=== PATIENT | female | born 1940 | race African-American/Black ===

== ENCOUNTER 2016-08-15 14:05 | Inpatient (IN) | payer MEDICARE, MEDICAID ==
[~2016-08-15] VITALS: Ht 162.6 cm; Wt 98.0 kg
[~2016-08-15 14:05] MED LIST: ALBU18HF2 INH; METF500T3 PO
[2016-08-15 15:29] LABS: BASOPHILS % 0.5 % (0.0-2.0); DIFFERENTIAL COMMENT 0; EOSINOPHILS % 2.5 % (0.0-5.0); HEMATOCRIT. 42.2 % (36.0-48.0); HEMOGLOBIN. 14.3 g/dL (12.0-16.0); LYMPHOCYTES % 17.4 % (20.0-50.0); MEAN CORPUSCULAR HEMOGLOBIN 36.5 pg (28.0-32.0); MEAN CORPUSCULAR HGB CONC 33.8 g/dL (31.0-37.0); MEAN CORPUSCULAR VOLUME 107.9 fL (81.0-99.0); MONOCYTES % 10.3 % (2.0-8.0); NEUTROPHILS % 69.3 % (40.0-76.0); PLATELET 144 x1000/uL (130-400); RED BLOOD CELL COUNT 3.91 mill/uL (4.2-5.4); RED CELL DISTRIBUTION WIDTH 16.7 % (11.6-14.6); WHITE BLOOD COUNT 12.6 x1000/uL (4.5-11.0)
[2016-08-15 15:32] LABS: INR 1.3; PROTHROMBIN TIME 13.9 sec
[2016-08-15 15:40] LABS: ANION GAP 12; CALCIUM 9.6 mg/dL (8.5-10.1); CARBON DIOXIDE 24 mEq/L (21-32); CHLORIDE 101 mEq/L (98-107); INDEX HEMOLYSI 1 (1-3); INDEX ICTERIC 1 (1-4); INDEX LIPEMIC 1 (1-3); NT PRO B-TYPE NATRIURETIC PEP 581 pg/mL (5-125); TROPONIN I < 0.02 ng/mL (0.00-0.04); UREA NITROGEN BLOOD 27 mg/dL (7-21); eGFR > 60 mL/min (>60)
[2016-08-15] MEDS ORDERED: SODIUM CHLORIDE 0.9% 1,000 ML IV ONE (15:55)
[2016-08-15 16:47] LABS: ALBUMIN 1.5 g/dL (3.4-5.0); BILIRUBIN DIRECT 0.4 mg/dL (0.0-0.2)
[2016-08-15] MEDS ORDERED: IPRATROPIUM/ALBUTEROL 0.5-3(2.5)MG/3ML NEB INH PRN (18:00)
[2016-08-15] MEDS ORDERED: ONDANSETRON HCL 4MG/2ML VIAL IV PRN (18:00)
[2016-08-15] MEDS ORDERED: ACETAMINOPHEN 325MG TABLET PO PRN (18:00)
[2016-08-15] MEDS ORDERED: FAMO40TA7 PO (23:52)
[2016-08-15] MEDS ORDERED: HYDR-3933 PO (23:52)
[2016-08-16] VITALS: BP 112/67
[2016-08-16] MEDS ORDERED: DEXTROSE 50% WATER 50ML SYRINGE IV PRN
[2016-08-16 00:17] LABS: AMMONIA 38 uMol/L (<32)
[2016-08-16] MEDS: FUROSEMIDE 40MG/4ML VIAL IV SCH ×2 (00:19→09:02)
[2016-08-16] MEDS: ENOXAPARIN 100MG/ML SYR SUBCUT SCH ×3 (00:23→21:28)
[2016-08-16 04:00] VITALS: BP 98/65
[2016-08-16 06:52] LABS: CHLORIDE 100 mEq/L (98-107); INDEX HEMOLYSI 2 (1-3); INDEX ICTERIC 2 (1-4); INDEX LIPEMIC 1 (1-3)
[2016-08-16 06:55] LABS: HEPATITIS B SURFACE ANTIGEN NEGATIVE
[2016-08-16] MEDS: BLOOD SUGAR DIAGNOSTIC STRIP TEST SCH ×4 (07:04→20:49)
[2016-08-16] MEDS: OMEPRAZOLE 20MG CAPSULE EXTENDED RELEASE PO SCH (07:04)
[2016-08-16 07:12] LABS: ALANINE AMINOTRANSFERASE 41 IU/L (13-61); ALBUMIN 1.6 g/dL (3.4-5.0); ANION GAP 15; BILIRUBIN DIRECT 0.9 mg/dL (0.0-0.2); CALCIUM 9.2 mg/dL (8.5-10.1); CARBON DIOXIDE 23 mEq/L (21-32); MAGNESIUM 1.9 mg/dL (1.8-2.4); PHOSPHORUS 3.2 mg/dL (2.5-4.9); UREA NITROGEN BLOOD 29 mg/dL (7-21); eGFR > 60 mL/min (>60)
[2016-08-16 07:21] LABS: BASOPHILS % 0.5 % (0.0-2.0); DIFFERENTIAL COMMENT 0; EOSINOPHILS % 0.5 % (0.0-5.0); HEMATOCRIT. 41.6 % (36.0-48.0); HEMOGLOBIN. 13.8 g/dL (12.0-16.0); LYMPHOCYTES % 13.6 % (20.0-50.0); MEAN CORPUSCULAR HEMOGLOBIN 36.2 pg (28.0-32.0); MEAN CORPUSCULAR HGB CONC 33.2 g/dL (31.0-37.0); MEAN CORPUSCULAR VOLUME 108.9 fL (81.0-99.0); MEAN PLATELET VOLUME 7.5 fl (7.4-10.4); MONOCYTES % 9.6 % (2.0-8.0); NEUTROPHILS % 75.8 % (40.0-76.0); PLATELET 155 x1000/uL (130-400); RED BLOOD CELL COUNT 3.82 mill/uL (4.2-5.4); RED CELL DISTRIBUTION WIDTH 17.1 % (11.6-14.6); WHITE BLOOD COUNT 13.4 x1000/uL (4.5-11.0)
[2016-08-16 07:22] LABS: HEPATITIS C VIR.AB 0.23 INDEXVAL (0.00-0.80)
[2016-08-16 07:23] LABS: HEPATITIS B CORE AB IGM NEGATIVE
[2016-08-16 07:24] LABS: HEPATITIS A AB IGM NEGATIVE (NEGATIVE)
[2016-08-16] MEDS: INSULIN LISPRO 100 UNITS/ML SUBCUT SCH ×4 (07:50→20:49)
[2016-08-16 07:54] VITALS: BP 103/71
[2016-08-16 09:04] LABS: T3 FREE 0.57 pg/ml (2.18-3.98); T4 FREE 1.08 ng/dL (0.76-1.46)
[2016-08-16 09:30] LABS: FOLIC ACID (FOLATE) SERUM 8.9 ng/mL (>5.38)
[2016-08-16] MEDS ORDERED: LACTULOSE 20G/30ML UDC PO NR (11:45)
[2016-08-16 12:19] VITALS: BP 93/57
[2016-08-16] MEDS: TRAMADOL 50MG TABLET PO PRN ×2 (12:56→21:28)
[2016-08-16] MEDS: HYDROCODONE/ACETAMINOPHEN 5/325MG TABLET PO PRN (14:35)
[2016-08-16 16:00] VITALS: BP 100/68
[2016-08-16 16:44] LABS: CLARITY URINE TURBID (CLEAR); COLOR URINE DARK YELLOW (YELLOW); GLUCOSE URINE NEGATIVE (NEGATIVE); KETONES URINE NEGATIVE (NEGATIVE); LEUKOCYTE ESTERASE URINE 3+ (NEGATIVE); NITRITE URINE POSITIVE (NEGATIVE); OCCULT BLOOD URINE 1+ (NEGATIVE); PROTEIN URINE NEGATIVE (NEGATIVE); SPECIFIC GRAVITY URINE 1.012 (1.005-1.030)
[2016-08-16 17:16] LABS: *AMPHETAMINES SCREEN URINE NEGATIVE (NEGATIVE); *BARBITURATES SCREEN URINE NEGATIVE (NEGATIVE); *BENZODIAZEPINES SCREEN URINE NEGATIVE (NEGATIVE); *COCAINE SCREEN URINE NEGATIVE (NEGATIVE); CANNABINOID URINE SCREEN NEGATIVE (NEGATIVE); ECSTASY MDMA SCREEN URINE NEGATIVE (NEGATIVE); METHADONE URINE SCREEN NEGATIVE (NEGATIVE); OPIATES URINE SCREEN PRESUMTIVE POSITIVE (NEGATIVE); PHENCYCLIDINE URINE SCREEN NEGATIVE (NEGATIVE)
[2016-08-16 17:43] LABS: AMORPHOUS SEDIMENT URINE 1+ /lpf; MUCUS URINE 3+ /lpf (< = 2+); WBC URINE 50-100 /hpf (0-2)
[2016-08-16 17:45] LABS: SQUAMOUS EPITHELIAL CELL URINE FEW /lpf (RARE/1+)
[2016-08-16 17:46] LABS: BACTERIA URINE 3+
[2016-08-16 20:00] VITALS: BP 104/71
[2016-08-16 20:38] LABS: INDEX HEMOLYSI 4 (1-3)
[2016-08-16 20:40] LABS: AMMONIA 58 uMol/L (<32)
[2016-08-16] MEDS: LACTULOSE 20G/30ML UDC PO SCH (21:27)
[2016-08-17] VITALS: BP 104/72
[2016-08-17 04:00] VITALS: BP 106/71
[2016-08-17 05:02] LABS: ANION GAP 12; CARBON DIOXIDE 26 mEq/L (21-32); CHLORIDE 101 mEq/L (98-107); INDEX HEMOLYSI 1 (1-3); INDEX ICTERIC 1 (1-4); INDEX LIPEMIC 1 (1-3); UREA NITROGEN BLOOD 33 mg/dL (7-21); eGFR > 60 mL/min (>60)
[2016-08-17 05:32] LABS: CALCIUM 9.1 mg/dL (8.5-10.1); MAGNESIUM 1.8 mg/dL (1.8-2.4)
[2016-08-17 06:35] LABS: BASOPHILS % 0.2 % (0.0-2.0); DIFFERENTIAL COMMENT 0; EOSINOPHILS % 1.9 % (0.0-5.0); HEMATOCRIT. 37.4 % (36.0-48.0); HEMOGLOBIN. 12.6 g/dL (12.0-16.0); LYMPHOCYTES % 15.1 % (20.0-50.0); MEAN CORPUSCULAR HEMOGLOBIN 36.5 pg (28.0-32.0); MEAN CORPUSCULAR HGB CONC 33.8 g/dL (31.0-37.0); MEAN PLATELET VOLUME 7.5 fl (7.4-10.4); MONOCYTES % 9.7 % (2.0-8.0); NEUTROPHILS % 73.1 % (40.0-76.0); PLATELET 158 x1000/uL (130-400); RED BLOOD CELL COUNT 3.46 mill/uL (4.2-5.4); RED CELL DISTRIBUTION WIDTH 16.4 % (11.6-14.6); WHITE BLOOD COUNT 15.2 x1000/uL (4.5-11.0)
[2016-08-17] MEDS: LACTULOSE 20G/30ML UDC PO SCH ×3 (06:42→21:22)
[2016-08-17] MEDS: OMEPRAZOLE 20MG CAPSULE EXTENDED RELEASE PO SCH (06:50)
[2016-08-17] MEDS: BLOOD SUGAR DIAGNOSTIC STRIP TEST SCH ×4 (06:53→21:22)
[2016-08-17] MEDS: INSULIN LISPRO 100 UNITS/ML SUBCUT SCH ×4 (07:50→21:21)
[2016-08-17 08:00] VITALS: BP 112/75
[2016-08-17] MEDS: HYDROCODONE/ACETAMINOPHEN 5/325MG TABLET PO PRN (08:37)
[2016-08-17] MEDS: ENOXAPARIN 100MG/ML SYR SUBCUT SCH ×2 (09:16→21:23)
[2016-08-17] MEDS: FUROSEMIDE 40MG/4ML VIAL IV SCH ×2 (09:16→17:38)
[2016-08-17] MEDS ORDERED: SPIRONOLACTONE 100MG TABLET PO SCH (10:30)
[2016-08-17 12:00] VITALS: BP 120/86
[2016-08-17] MEDS ORDERED: LEVOFLOXACIN 500MG PREMIX 100 ML IV NR (12:00)
[2016-08-17] MEDS: PROPRANOLOL HCL 10MG TABLET PO SCH ×2 (15:54→21:00)
[2016-08-17 16:00] VITALS: BP 116/84
[2016-08-17] MEDS: TRAMADOL 50MG TABLET PO PRN (17:52)
[2016-08-17 20:00] VITALS: BP 106/79
[2016-08-18 00:36] VITALS: BP 100/78
[2016-08-18] MEDS: HYDROCODONE/ACETAMINOPHEN 5/325MG TABLET PO PRN ×2 (02:55→15:56)
[2016-08-18 04:00] VITALS: BP 87/47
[2016-08-18] MEDS: FUROSEMIDE 40MG/4ML VIAL IV SCH ×2 (06:15→18:43)
[2016-08-18] MEDS: LACTULOSE 20G/30ML UDC PO SCH ×2 (06:15→18:43)
[2016-08-18] MEDS: SPIRONOLACTONE 50MG TABLET PO SCH ×2 (06:16→18:42)
[2016-08-18] MEDS: BLOOD SUGAR DIAGNOSTIC STRIP TEST SCH ×4 (06:32→21:00)
[2016-08-18 06:38] LABS: AMMONIA 76 uMol/L (<32); INDEX HEMOLYSI 1 (1-3)
[2016-08-18 07:33] LABS: BASOPHILS % 0.4 % (0.0-2.0); DIFFERENTIAL COMMENT 0; EOSINOPHILS % 1.7 % (0.0-5.0); HEMATOCRIT. 35.4 % (36.0-48.0); HEMOGLOBIN. 11.9 g/dL (12.0-16.0); LYMPHOCYTES % 14.1 % (20.0-50.0); MEAN CORPUSCULAR HEMOGLOBIN 35.7 pg (28.0-32.0); MEAN CORPUSCULAR HGB CONC 33.5 g/dL (31.0-37.0); MEAN CORPUSCULAR VOLUME 106.6 fL (81.0-99.0); MEAN PLATELET VOLUME 7.3 fl (7.4-10.4); MONOCYTES % 8.8 % (2.0-8.0); PLATELET 145 x1000/uL (130-400); RED BLOOD CELL COUNT 3.32 mill/uL (4.2-5.4); RED CELL DISTRIBUTION WIDTH 16.6 % (11.6-14.6); WHITE BLOOD COUNT 14.9 x1000/uL (4.5-11.0)
[2016-08-18] MEDS: INSULIN LISPRO 100 UNITS/ML SUBCUT SCH ×4 (07:50→21:00)
[2016-08-18 08:00] VITALS: BP 92/61
[2016-08-18 08:12] LABS: ALANINE AMINOTRANSFERASE 34 IU/L (13-61); ALBUMIN 1.3 g/dL (3.4-5.0); ANION GAP 10; BILIRUBIN DIRECT 0.6 mg/dL (0.0-0.2); CALCIUM 8.8 mg/dL (8.5-10.1); CARBON DIOXIDE 27 mEq/L (21-32); CHLORIDE 100 mEq/L (98-107); INDEX HEMOLYSI 1 (1-3); INDEX ICTERIC 1 (1-4); INDEX LIPEMIC 1 (1-3); UREA NITROGEN BLOOD 30 mg/dL (7-21); eGFR > 60 mL/min (>60)
[2016-08-18] MEDS: PROPRANOLOL HCL 10MG TABLET PO SCH ×2 (09:00→21:00)
[2016-08-18] MEDS: TRAMADOL 50MG TABLET PO PRN (09:44)
[2016-08-18] MEDS: FAMOTIDINE 20MG TABLET PO SCH (09:45)
[2016-08-18] MEDS: ENOXAPARIN 100MG/ML SYR SUBCUT SCH ×2 (09:46→22:09)
[2016-08-18 12:00] VITALS: BP 101/65
[2016-08-18] MEDS: LEVOFLOXACIN 250MG PREMIX 50 ML IV SCH (12:01)
[2016-08-18 13:52] LABS: BG BASE EXCESS -2.1 mmol/L (-2.0-2.0); BG CARBOXYHEMOGLOBIN 0.4 % (0.5-1.5); BG DEOXYHEMOGLOBIN 3.4 % (0.0-5.0); BG FRACTION INSPIRED OXYGEN 28; BG HCO3 ACT 22.6 mmol/L (22.0-26.0); BG METHEMOGLOBIN 0.2 % (0.0-1.5); BG OXYGEN SATURATION 96.6 % (92.0-98.5); BG PCO2 38.7 mmHg (35.0-45.0); BG PH 7.384 (7.350-7.450); BG PO2 88.6 mmHg (75.0-100.0); BG SAMPLE SITE RIGHT BRACHIAL; BG TOTAL HEMOGLOBIN 13.4 g/dL (12.0-18.0); BG VENT MODE NASAL CANNULA
[2016-08-18] MEDS: IPRATROPIUM/ALBUTEROL 0.5-3(2.5)MG/3ML NEB HHN PRN ×2 (15:34→21:33)
[2016-08-18] MEDS: BUDESONIDE 0.5MG/2ML NEB HHN SCH ×2 (15:35→21:33)
[2016-08-18 16:00] VITALS: BP 100/60
[2016-08-18 16:47] LABS: HEMATOCRIT 39.3 % (36.0-48.0); HEMOGLOBIN 13.1 g/dL (12.0-16.0)
[2016-08-18 20:56] VITALS: BP 108/68
[2016-08-19 00:17] VITALS: BP 110/67
[2016-08-19 04:00] VITALS: BP 98/68
[2016-08-19] MEDS: FUROSEMIDE 40MG/4ML VIAL IV SCH ×2 (06:17→18:44)
[2016-08-19] MEDS: SPIRONOLACTONE 50MG TABLET PO SCH ×2 (06:17→18:43)
[2016-08-19 06:45] LABS: CHLORIDE 100 mEq/L (98-107); INDEX HEMOLYSI 1 (1-3); INDEX ICTERIC 1 (1-4); INDEX LIPEMIC 1 (1-3)
[2016-08-19 06:55] LABS: AMMONIA 82 uMol/L (<32)
[2016-08-19 06:56] LABS: ALANINE AMINOTRANSFERASE 37 IU/L (13-61); ANION GAP 16; BILIRUBIN DIRECT 0.6 mg/dL (0.0-0.2); CALCIUM 7.7 mg/dL (8.5-10.1); CARBON DIOXIDE 21 mEq/L (21-32); MAGNESIUM 1.4 mg/dL (1.8-2.4); UREA NITROGEN BLOOD 23 mg/dL (7-21); eGFR > 60 mL/min (>60)
[2016-08-19 07:20] LABS: ALBUMIN 0.7 g/dL (3.4-5.0)
[2016-08-19] MEDS: BLOOD SUGAR DIAGNOSTIC STRIP TEST SCH ×4 (07:20→21:31)
[2016-08-19] MEDS: INSULIN LISPRO 100 UNITS/ML SUBCUT SCH ×4 (07:50→21:27)
[2016-08-19 08:00] VITALS: BP 104/75
[2016-08-19] MEDS: BUDESONIDE 0.5MG/2ML NEB HHN SCH ×2 (08:13→20:24)
[2016-08-19] MEDS: IPRATROPIUM/ALBUTEROL 0.5-3(2.5)MG/3ML NEB HHN PRN (08:13)
[2016-08-19 08:43] LABS: BASOPHILS % 0.7 % (0.0-2.0); DIFFERENTIAL COMMENT 0; EOSINOPHILS % 1.8 % (0.0-5.0); HEMOGLOBIN. 13.6 g/dL (12.0-16.0); LYMPHOCYTES % 14.9 % (20.0-50.0); MEAN CORPUSCULAR HGB CONC 33.1 g/dL (31.0-37.0); MEAN CORPUSCULAR VOLUME 108.6 fL (81.0-99.0); MEAN PLATELET VOLUME 8.1 fl (7.4-10.4); MONOCYTES % 9.7 % (2.0-8.0); NEUTROPHILS % 72.9 % (40.0-76.0); PLATELET 123 x1000/uL (130-400); RED BLOOD CELL COUNT 3.77 mill/uL (4.2-5.4); WHITE BLOOD COUNT 13.5 x1000/uL (4.5-11.0)
[2016-08-19] MEDS ORDERED: POTASSIUM-SODIUM PHOSPHATE POWDER PACKET PO NR (08:45)
[2016-08-19] MEDS: PROPRANOLOL HCL 10MG TABLET PO SCH ×2 (09:00→21:31)
[2016-08-19] MEDS: LACTULOSE 20G/30ML UDC PO SCH ×2 (09:48→18:43)
[2016-08-19] MEDS: FAMOTIDINE 20MG TABLET PO SCH (09:49)
[2016-08-19] MEDS: ENOXAPARIN 100MG/ML SYR SUBCUT SCH ×2 (09:50→21:32)
[2016-08-19] MEDS ORDERED: MAGNESIUM 2 G PREMIX 50 ML IV NR (10:00)
[2016-08-19] MEDS ORDERED: LACTULOSE 20G/30ML UDC PO SCH (12:00)
[2016-08-19 12:11] VITALS: BP 91/48
[2016-08-19] MEDS: LEVOFLOXACIN 250MG PREMIX 50 ML IV SCH (13:39)
[2016-08-19 15:48] VITALS: BP 107/70
[2016-08-19 20:00] VITALS: BP 116/70
[2016-08-19] MEDS: TRAMADOL 50MG TABLET PO PRN (21:54)
[2016-08-20] VITALS: BP 122/66
[2016-08-20 04:00] VITALS: BP 120/60
[2016-08-20 06:47] LABS: BASOPHILS % 0.7 % (0.0-2.0); DIFFERENTIAL COMMENT 0; EOSINOPHILS % 1.4 % (0.0-5.0); HEMATOCRIT. 38.5 % (36.0-48.0); MEAN CORPUSCULAR HEMOGLOBIN 35.7 pg (28.0-32.0); MEAN CORPUSCULAR HGB CONC 33.7 g/dL (31.0-37.0); MEAN CORPUSCULAR VOLUME 106.1 fL (81.0-99.0); MEAN PLATELET VOLUME 7.7 fl (7.4-10.4); NEUTROPHILS % 75.9 % (40.0-76.0); PLATELET 135 x1000/uL (130-400); RED BLOOD CELL COUNT 3.63 mill/uL (4.2-5.4); RED CELL DISTRIBUTION WIDTH 16.5 % (11.6-14.6); WHITE BLOOD COUNT 13.3 x1000/uL (4.5-11.0)
[2016-08-20] MEDS: SPIRONOLACTONE 50MG TABLET PO SCH ×2 (06:59→17:43)
[2016-08-20] MEDS: BLOOD SUGAR DIAGNOSTIC STRIP TEST SCH ×4 (07:00→21:46)
[2016-08-20] MEDS: FUROSEMIDE 40MG/4ML VIAL IV SCH ×2 (07:00→17:40)
[2016-08-20 07:09] LABS: AMMONIA 77 uMol/L (<32)
[2016-08-20 07:31] LABS: ALANINE AMINOTRANSFERASE 38 IU/L (13-61); ALBUMIN 1.4 g/dL (3.4-5.0); ANION GAP 11; BILIRUBIN DIRECT 0.4 mg/dL (0.0-0.2); CARBON DIOXIDE 26 mEq/L (21-32); CHLORIDE 101 mEq/L (98-107); INDEX HEMOLYSI 1 (1-3); INDEX ICTERIC 1 (1-4); INDEX LIPEMIC 1 (1-3); PHOSPHORUS 1.7 mg/dL (2.5-4.9); UREA NITROGEN BLOOD 27 mg/dL (7-21); eGFR > 60 mL/min (>60)
[2016-08-20] MEDS: LACTULOSE 20G/30ML UDC PO SCH ×2 (09:27→17:40)
[2016-08-20] MEDS: FAMOTIDINE 20MG TABLET PO SCH (09:28)
[2016-08-20] MEDS: PROPRANOLOL HCL 10MG TABLET PO SCH ×3 (09:28→21:47)
[2016-08-20] MEDS: TRAMADOL 50MG TABLET PO PRN ×2 (09:28→17:44)
[2016-08-20] MEDS: ENOXAPARIN 100MG/ML SYR SUBCUT SCH ×2 (09:29→21:47)
[2016-08-20 10:03] VITALS: BP 115/70
[2016-08-20] MEDS: IPRATROPIUM/ALBUTEROL 0.5-3(2.5)MG/3ML NEB HHN PRN (10:06)
[2016-08-20] MEDS: BUDESONIDE 0.5MG/2ML NEB HHN SCH ×2 (10:07→20:24)
[2016-08-20] MEDS ORDERED: POTASSIUM-SODIUM PHOSPHATE POWDER PACKET PO NR (11:30)
[2016-08-20 12:39] VITALS: BP 105/60
[2016-08-20] MEDS: INSULIN LISPRO 100 UNITS/ML SUBCUT SCH ×4 (13:10→21:00)
[2016-08-20] MEDS: LEVOFLOXACIN 250MG PREMIX 50 ML IV SCH (13:12)
[2016-08-20 16:25] VITALS: BP 98/60
[2016-08-20 20:00] VITALS: BP 166/70
[2016-08-21] VITALS (7 sets, daily range): BP systolic 88–120; BP diastolic 61–83
[2016-08-21 06:20] LABS: AMMONIA 69 uMol/L (<32); BASOPHILS % 0.7 % (0.0-2.0); DIFFERENTIAL COMMENT 0; EOSINOPHILS % 1.9 % (0.0-5.0); HEMATOCRIT. 39.7 % (36.0-48.0); HEMOGLOBIN. 13.6 g/dL (12.0-16.0); LYMPHOCYTES % 16.6 % (20.0-50.0); MEAN CORPUSCULAR HEMOGLOBIN 36.2 pg (28.0-32.0); MEAN CORPUSCULAR HGB CONC 34.1 g/dL (31.0-37.0); MEAN CORPUSCULAR VOLUME 106.2 fL (81.0-99.0); MEAN PLATELET VOLUME 7.9 fl (7.4-10.4); MONOCYTES % 10.1 % (2.0-8.0); NEUTROPHILS % 70.7 % (40.0-76.0); PLATELET 152 x1000/uL (130-400); RED BLOOD CELL COUNT 3.74 mill/uL (4.2-5.4); RED CELL DISTRIBUTION WIDTH 16.6 % (11.6-14.6); WHITE BLOOD COUNT 12.5 x1000/uL (4.5-11.0)
[2016-08-21] MEDS: FUROSEMIDE 40MG/4ML VIAL IV SCH ×2 (06:58→18:35)
[2016-08-21] MEDS: BLOOD SUGAR DIAGNOSTIC STRIP TEST SCH ×4 (06:58→21:29)
[2016-08-21] MEDS: SPIRONOLACTONE 50MG TABLET PO SCH ×3 (06:58→18:35)
[2016-08-21 07:11] LABS: ANION GAP 9; CALCIUM 8.8 mg/dL (8.5-10.1); CARBON DIOXIDE 28 mEq/L (21-32); CHLORIDE 100 mEq/L (98-107); INDEX HEMOLYSI 1 (1-3); INDEX ICTERIC 1 (1-4); INDEX LIPEMIC 1 (1-3); UREA NITROGEN BLOOD 24 mg/dL (7-21); eGFR > 60 mL/min (>60)
[2016-08-21] MEDS: INSULIN LISPRO 100 UNITS/ML SUBCUT SCH ×4 (07:50→21:00)
[2016-08-21] MEDS: LACTULOSE 20G/30ML UDC PO SCH ×2 (09:00→18:36)
[2016-08-21] MEDS: ENOXAPARIN 100MG/ML SYR SUBCUT SCH ×2 (10:51→21:28)
[2016-08-21] MEDS: PROPRANOLOL HCL 10MG TABLET PO SCH ×2 (10:51→21:00)
[2016-08-21] MEDS: FAMOTIDINE 20MG TABLET PO SCH (10:52)
[2016-08-21] MEDS: LEVOFLOXACIN 250MG PREMIX 50 ML IV SCH (12:04)
[2016-08-21] MEDS: BUDESONIDE 0.5MG/2ML NEB HHN SCH (12:13)
[2016-08-22] VITALS (7 sets, daily range): BP systolic 84–103; BP diastolic 43–65
[2016-08-22 06:29] LABS: HEMATOCRIT. 39.1 % (36.0-48.0); HEMOGLOBIN. 13.3 g/dL (12.0-16.0); MEAN CORPUSCULAR HEMOGLOBIN 36.1 pg (28.0-32.0); MEAN CORPUSCULAR HGB CONC 34.1 g/dL (31.0-37.0); MEAN CORPUSCULAR VOLUME 105.8 fL (81.0-99.0); MEAN PLATELET VOLUME 7.9 fl (7.4-10.4); PLATELET 122 x1000/uL (130-400); RED BLOOD CELL COUNT 3.69 mill/uL (4.2-5.4); RED CELL DISTRIBUTION WIDTH 17.1 % (11.6-14.6); WHITE BLOOD COUNT 14.8 x1000/uL (4.5-11.0)
[2016-08-22] MEDS: FUROSEMIDE 40MG/4ML VIAL IV SCH ×2 (06:34→16:55)
[2016-08-22] MEDS: SPIRONOLACTONE 50MG TABLET PO SCH ×2 (06:37→16:57)
[2016-08-22] MEDS: BLOOD SUGAR DIAGNOSTIC STRIP TEST SCH ×4 (06:39→22:06)
[2016-08-22 06:45] LABS: AMMONIA 90 uMol/L (<32); INDEX HEMOLYSI 2 (1-3)
[2016-08-22 06:53] LABS: DIFFERENTIAL COMMENT 1
[2016-08-22] MEDS: TRAMADOL 50MG TABLET PO PRN ×2 (06:55→19:11)
[2016-08-22 07:20] LABS: ALANINE AMINOTRANSFERASE 36 IU/L (13-61); ALBUMIN 1.2 g/dL (3.4-5.0); ANION GAP 12; BILIRUBIN DIRECT 0.4 mg/dL (0.0-0.2); CALCIUM 8.6 mg/dL (8.5-10.1); CARBON DIOXIDE 25 mEq/L (21-32); CHLORIDE 99 mEq/L (98-107); INDEX HEMOLYSI 2 (1-3); INDEX ICTERIC 1 (1-4); INDEX LIPEMIC 1 (1-3); UREA NITROGEN BLOOD 24 mg/dL (7-21); eGFR > 60 mL/min (>60)
[2016-08-22] MEDS: INSULIN LISPRO 100 UNITS/ML SUBCUT SCH ×4 (07:50→22:11)
[2016-08-22] MEDS: PROPRANOLOL HCL 10MG TABLET PO SCH ×2 (09:00→21:00)
[2016-08-22] MEDS: LACTULOSE 20G/30ML UDC PO SCH ×2 (09:00→16:55)
[2016-08-22] MEDS: ENOXAPARIN 100MG/ML SYR SUBCUT SCH ×2 (09:01→22:10)
[2016-08-22] MEDS: FAMOTIDINE 20MG TABLET PO SCH (09:01)
[2016-08-22] MEDS: LEVOFLOXACIN 250MG PREMIX 50 ML IV SCH (11:11)
[2016-08-22 13:07] LABS: ANISOCYTOSIS 1+; PLATELET ESTIMATE NORMAL
[2016-08-23] VITALS: BP 103/63
[2016-08-23 04:00] VITALS: BP 112/71
[2016-08-23 05:44] LABS: AMMONIA 82 uMol/L (<32)
[2016-08-23 06:01] LABS: HEMATOCRIT. 37.7 % (36.0-48.0); HEMOGLOBIN. 12.8 g/dL (12.0-16.0); MEAN CORPUSCULAR HEMOGLOBIN 35.8 pg (28.0-32.0); MEAN CORPUSCULAR HGB CONC 34.1 g/dL (31.0-37.0); MEAN CORPUSCULAR VOLUME 104.9 fL (81.0-99.0); PLATELET 125 x1000/uL (130-400); RED BLOOD CELL COUNT 3.59 mill/uL (4.2-5.4); RED CELL DISTRIBUTION WIDTH 16.2 % (11.6-14.6); WHITE BLOOD COUNT 11.8 x1000/uL (4.5-11.0)
[2016-08-23 06:51] LABS: DIFFERENTIAL COMMENT 1
[2016-08-23] MEDS: SPIRONOLACTONE 50MG TABLET PO SCH ×2 (07:02→18:57)
[2016-08-23] MEDS: FUROSEMIDE 40MG/4ML VIAL IV SCH ×2 (07:02→18:46)
[2016-08-23] MEDS: BLOOD SUGAR DIAGNOSTIC STRIP TEST SCH ×4 (07:02→21:50)
[2016-08-23] MEDS: INSULIN LISPRO 100 UNITS/ML SUBCUT SCH ×4 (07:50→21:55)
[2016-08-23 08:00] VITALS: BP 101/61
[2016-08-23 08:09] LABS: ANION GAP 11; CARBON DIOXIDE 27 mEq/L (21-32); CHLORIDE 99 mEq/L (98-107); INDEX HEMOLYSI 1 (1-3); INDEX ICTERIC 1 (1-4); INDEX LIPEMIC 1 (1-3); MAGNESIUM 1.7 mg/dL (1.8-2.4); PHOSPHORUS 1.7 mg/dL (2.5-4.9); UREA NITROGEN BLOOD 25 mg/dL (7-21); eGFR > 60 mL/min (>60)
[2016-08-23] MEDS: PROPRANOLOL HCL 10MG TABLET PO SCH ×2 (09:00→21:00)
[2016-08-23] MEDS: FAMOTIDINE 20MG TABLET PO SCH (10:04)
[2016-08-23] MEDS: LACTULOSE 20G/30ML UDC PO SCH ×2 (10:04→18:46)
[2016-08-23] MEDS: ENOXAPARIN 100MG/ML SYR SUBCUT SCH ×2 (10:05→21:56)
[2016-08-23] MEDS: TRAMADOL 50MG TABLET PO PRN (10:35)
[2016-08-23 12:00] VITALS: BP 90/63
[2016-08-23] MEDS: RIFAXIMIN 550 MG TABLET PO SCH ×2 (13:33→21:55)
[2016-08-23] MEDS: LEVOFLOXACIN 250MG PREMIX 50 ML IV SCH (13:33)
[2016-08-23] MEDS ORDERED: POTASSIUM-SODIUM PHOSPHATE POWDER PACKET PO SCH (14:30)
[2016-08-23] MEDS: MAGNESIUM 1 G PREMIX 100 ML IV SCH (15:31)
[2016-08-23 16:00] VITALS: BP 96/65
[2016-08-23 20:00] VITALS: BP 105/67
[2016-08-24] VITALS: BP 94/71
[2016-08-24 04:00] VITALS: BP 103/72
[2016-08-24 06:33] LABS: AMMONIA 91 uMol/L (<32); INDEX HEMOLYSI 3 (1-3)
[2016-08-24 06:39] LABS: ANION GAP 11; CALCIUM 8.4 mg/dL (8.5-10.1); CARBON DIOXIDE 27 mEq/L (21-32); CHLORIDE 98 mEq/L (98-107); INDEX HEMOLYSI 3 (1-3); INDEX ICTERIC 1 (1-4); INDEX LIPEMIC 1 (1-3); UREA NITROGEN BLOOD 25 mg/dL (7-21); eGFR > 60 mL/min (>60)
[2016-08-24] MEDS: BLOOD SUGAR DIAGNOSTIC STRIP TEST SCH ×4 (06:39→21:39)
[2016-08-24] MEDS: FUROSEMIDE 40MG/4ML VIAL IV SCH ×2 (06:44→17:39)
[2016-08-24] MEDS: SPIRONOLACTONE 50MG TABLET PO SCH ×2 (06:44→17:39)
[2016-08-24 06:50] LABS: HEMATOCRIT. 37.7 % (36.0-48.0); HEMOGLOBIN. 12.9 g/dL (12.0-16.0); MEAN CORPUSCULAR HEMOGLOBIN 35.9 pg (28.0-32.0); MEAN CORPUSCULAR HGB CONC 34.3 g/dL (31.0-37.0); MEAN CORPUSCULAR VOLUME 104.6 fL (81.0-99.0); MEAN PLATELET VOLUME 8.1 fl (7.4-10.4); PLATELET 124 x1000/uL (130-400); RED CELL DISTRIBUTION WIDTH 16.6 % (11.6-14.6)
[2016-08-24 07:06] LABS: DIFFERENTIAL COMMENT 1
[2016-08-24] MEDS: INSULIN LISPRO 100 UNITS/ML SUBCUT SCH ×4 (07:50→21:39)
[2016-08-24 08:00] VITALS: BP 106/70
[2016-08-24] MEDS: PROPRANOLOL HCL 10MG TABLET PO SCH ×2 (08:56→20:33)
[2016-08-24] MEDS: FAMOTIDINE 20MG TABLET PO SCH (09:05)
[2016-08-24] MEDS: LACTULOSE 20G/30ML UDC PO SCH ×2 (09:05→17:40)
[2016-08-24] MEDS: RIFAXIMIN 550 MG TABLET PO SCH ×2 (09:05→21:39)
[2016-08-24] MEDS: ENOXAPARIN 100MG/ML SYR SUBCUT SCH ×2 (10:09→22:01)
[2016-08-24 12:00] VITALS: BP 112/76
[2016-08-24] MEDS: TRAMADOL 50MG TABLET PO PRN (12:14)
[2016-08-24] MEDS: LEVOFLOXACIN 250MG PREMIX 50 ML IV SCH (12:14)
[2016-08-24] MEDS ORDERED: BISACODYL 10MG SUPP PR PRN (13:15)
[2016-08-24 14:20] LABS: PLATELET ESTIMATE SLIGHTLY DECREASED
[2016-08-24] MEDS: MAGNESIUM 1 G PREMIX 100 ML IV SCH (14:32)
[2016-08-24 16:00] VITALS: BP 120/78
[2016-08-24 16:18] LABS: TARGET CELLS 1+
[2016-08-24] MEDS: DOCUSATE SODIUM 100MG CAPSULE PO SCH (17:39)
[2016-08-24 20:00] VITALS: BP 104/62
[2016-08-24] MEDS: POLYETHYLENE GLYCOL 3350 (17GM) 1 DOSE PACK PO SCH (21:39)
[2016-08-25] VITALS (7 sets, daily range): BP systolic 90–115; BP diastolic 56–78
[2016-08-25] MEDS: TRAMADOL 50MG TABLET PO PRN ×2 (05:23→21:00)
[2016-08-25 05:46] LABS: AMMONIA 54 uMol/L (<32); INDEX HEMOLYSI 3 (1-3)
[2016-08-25 05:55] LABS: ANION GAP 13; CALCIUM 8.8 mg/dL (8.5-10.1); CARBON DIOXIDE 26 mEq/L (21-32); CHLORIDE 100 mEq/L (98-107); INDEX HEMOLYSI 1 (1-3); INDEX ICTERIC 1 (1-4); INDEX LIPEMIC 1 (1-3); UREA NITROGEN BLOOD 25 mg/dL (7-21); eGFR > 60 mL/min (>60)
[2016-08-25 06:35] LABS: HEMATOCRIT. 38.6 % (36.0-48.0); HEMOGLOBIN. 13.2 g/dL (12.0-16.0); MEAN CORPUSCULAR HEMOGLOBIN 35.8 pg (28.0-32.0); MEAN CORPUSCULAR HGB CONC 34.1 g/dL (31.0-37.0); MEAN CORPUSCULAR VOLUME 105.1 fL (81.0-99.0); MEAN PLATELET VOLUME 7.8 fl (7.4-10.4); PLATELET 120 x1000/uL (130-400); RED BLOOD CELL COUNT 3.68 mill/uL (4.2-5.4); RED CELL DISTRIBUTION WIDTH 16.7 % (11.6-14.6); WHITE BLOOD COUNT 14.2 x1000/uL (4.5-11.0)
[2016-08-25] MEDS: BLOOD SUGAR DIAGNOSTIC STRIP TEST SCH ×4 (07:02→21:01)
[2016-08-25] MEDS: FUROSEMIDE 40MG/4ML VIAL IV SCH (07:02)
[2016-08-25] MEDS: SPIRONOLACTONE 50MG TABLET PO SCH ×3 (07:02→16:57)
[2016-08-25 07:14] LABS: DIFFERENTIAL COMMENT 1
[2016-08-25 07:49] LABS: PLATELET ESTIMATE SLIGHTL
[2016-08-25] MEDS ORDERED: NA PHOS,M-B/NA PHOS,DI-BA ENEMA 118ML PR NR (08:30)
[2016-08-25] MEDS: INSULIN LISPRO 100 UNITS/ML SUBCUT SCH ×4 (08:34→21:00)
[2016-08-25] MEDS: LACTULOSE 20G/30ML UDC PO SCH ×2 (08:36→16:53)
[2016-08-25] MEDS: RIFAXIMIN 550 MG TABLET PO SCH ×2 (08:36→21:00)
[2016-08-25] MEDS: DOCUSATE SODIUM 100MG CAPSULE PO SCH (08:36)
[2016-08-25] MEDS: FAMOTIDINE 20MG TABLET PO SCH (08:37)
[2016-08-25] MEDS: PROPRANOLOL HCL 10MG TABLET PO SCH ×2 (08:37→21:00)
[2016-08-25] MEDS: ENOXAPARIN 100MG/ML SYR SUBCUT SCH (10:16)
[2016-08-25 11:39] LABS: ANISOCYTOSIS 1+; PLATELET ESTIMATE NORMAL
[2016-08-25] MEDS ORDERED: NYSTATIN 100,000 UNITS/ML 5ML UDC SSW NR (14:30)
[2016-08-25] MEDS: DOCUSATE SODIUM 100MG CAPSULE PO PRN ×2 (16:51→16:53)
[2016-08-25] MEDS: FUROSEMIDE 100MG/10ML VIAL IV SCH (16:53)
[2016-08-25] MEDS: DOCUSATE SODIUM SUGAR FREE 100MG/10ML UDC NG SCH (16:59)
[2016-08-25] MEDS: POLYETHYLENE GLYCOL 3350 (17GM) 1 DOSE PACK PO SCH (20:55)
[2016-08-25] MEDS ORDERED: ENOXAPARIN 100MG/ML SYR SUBCUT SCH (21:00)
[2016-08-26] VITALS (7 sets, daily range): BP systolic 91–118; BP diastolic 44–76
[2016-08-26 05:56] LABS: HEMATOCRIT. 37.2 % (36.0-48.0); HEMOGLOBIN. 12.9 g/dL (12.0-16.0); MEAN CORPUSCULAR HGB CONC 34.6 g/dL (31.0-37.0); MEAN CORPUSCULAR VOLUME 104.3 fL (81.0-99.0); MEAN PLATELET VOLUME 7.8 fl (7.4-10.4); PLATELET 114 x1000/uL (130-400); RED BLOOD CELL COUNT 3.57 mill/uL (4.2-5.4); RED CELL DISTRIBUTION WIDTH 16.7 % (11.6-14.6); WHITE BLOOD COUNT 10.3 x1000/uL (4.5-11.0)
[2016-08-26] MEDS: TRAMADOL 50MG TABLET PO PRN ×2 (06:31→11:46)
[2016-08-26] MEDS: SPIRONOLACTONE 50MG TABLET PO SCH ×2 (06:59→18:19)
[2016-08-26] MEDS: FUROSEMIDE 100MG/10ML VIAL IV SCH ×2 (07:00→18:18)
[2016-08-26] MEDS: BLOOD SUGAR DIAGNOSTIC STRIP TEST SCH ×4 (07:00→21:00)
[2016-08-26] MEDS: INSULIN LISPRO 100 UNITS/ML SUBCUT SCH ×4 (07:34→21:59)
[2016-08-26 07:45] LABS: DIFFERENTIAL COMMENT 1
[2016-08-26 08:35] LABS: ANION GAP 10; CALCIUM 8.6 mg/dL (8.5-10.1); CARBON DIOXIDE 30 mEq/L (21-32); CHLORIDE 101 mEq/L (98-107); INDEX HEMOLYSI 1 (1-3); INDEX ICTERIC 1 (1-4); INDEX LIPEMIC 1 (1-3); MAGNESIUM 1.7 mg/dL (1.8-2.4); UREA NITROGEN BLOOD 21 mg/dL (7-21); eGFR > 60 mL/min (>60)
[2016-08-26] MEDS: FAMOTIDINE 20MG TABLET PO SCH (08:42)
[2016-08-26] MEDS: PROPRANOLOL HCL 10MG TABLET PO SCH ×2 (08:43→21:00)
[2016-08-26] MEDS: RIFAXIMIN 550 MG TABLET PO SCH ×2 (08:44→22:00)
[2016-08-26] MEDS: DOCUSATE SODIUM SUGAR FREE 100MG/10ML UDC NG SCH ×2 (08:44→18:17)
[2016-08-26] MEDS: LACTULOSE 20G/30ML UDC PO SCH ×2 (08:44→18:17)
[2016-08-26] MEDS ORDERED: NA PHOS,M-B/NA PHOS,DI-BA ENEMA 118ML PR PRN (09:00)
[2016-08-26 10:52] LABS: PLATELET ESTIMATE SLIGHTLY DECREASED
[2016-08-26 10:53] LABS: ANISOCYTOSIS 1+
[2016-08-26] MEDS ORDERED: POTASSIUM CHLORIDE 20MEQ TABLET SR PO NR (10:55)
[2016-08-26] MEDS ORDERED: MAGNESIUM 2 G PREMIX 50 ML IV NR (13:00)
[2016-08-26] MEDS: ENOXAPARIN 100MG/ML SYR SUBCUT SCH ×2 (18:00→19:35)
[2016-08-26] MEDS: POLYETHYLENE GLYCOL 3350 (17GM) 1 DOSE PACK PO SCH (21:59)
[2016-08-27] VITALS (8 sets, daily range): BP systolic 89–122; BP diastolic 50–83
[2016-08-27 05:27] LABS: HEMATOCRIT. 37.1 % (36.0-48.0); HEMOGLOBIN. 12.7 g/dL (12.0-16.0); MEAN CORPUSCULAR HEMOGLOBIN 35.8 pg (28.0-32.0); MEAN CORPUSCULAR HGB CONC 34.2 g/dL (31.0-37.0); MEAN CORPUSCULAR VOLUME 104.5 fL (81.0-99.0); MEAN PLATELET VOLUME 7.7 fl (7.4-10.4); PLATELET 124 x1000/uL (130-400); RED BLOOD CELL COUNT 3.55 mill/uL (4.2-5.4); RED CELL DISTRIBUTION WIDTH 16.7 % (11.6-14.6); WHITE BLOOD COUNT 11.2 x1000/uL (4.5-11.0)
[2016-08-27] MEDS: FUROSEMIDE 100MG/10ML VIAL IV SCH ×2 (06:25→17:15)
[2016-08-27] MEDS: SPIRONOLACTONE 50MG TABLET PO SCH ×2 (06:26→17:15)
[2016-08-27] MEDS: BLOOD SUGAR DIAGNOSTIC STRIP TEST SCH ×4 (06:26→21:03)
[2016-08-27 06:31] LABS: CHLORIDE 100 mEq/L (98-107); INDEX HEMOLYSI 1 (1-3); INDEX ICTERIC 1 (1-4); INDEX LIPEMIC 1 (1-3)
[2016-08-27 06:35] LABS: ANION GAP 12; CALCIUM 8.8 mg/dL (8.5-10.1); CARBON DIOXIDE 27 mEq/L (21-32); MAGNESIUM 1.7 mg/dL (1.8-2.4); UREA NITROGEN BLOOD 22 mg/dL (7-21); eGFR > 60 mL/min (>60)
[2016-08-27 06:48] LABS: DIFFERENTIAL COMMENT 1
[2016-08-27] MEDS: INSULIN LISPRO 100 UNITS/ML SUBCUT SCH ×4 (07:33→21:01)
[2016-08-27] MEDS: PROPRANOLOL HCL 10MG TABLET PO SCH ×2 (09:00→21:02)
[2016-08-27] MEDS: ENOXAPARIN 100MG/ML SYR SUBCUT SCH (09:17)
[2016-08-27] MEDS: LACTULOSE 20G/30ML UDC PO SCH ×2 (09:17→17:45)
[2016-08-27] MEDS: RIFAXIMIN 550 MG TABLET PO SCH ×2 (09:17→21:05)
[2016-08-27] MEDS: FAMOTIDINE 20MG TABLET PO SCH (09:17)
[2016-08-27] MEDS: DOCUSATE SODIUM SUGAR FREE 100MG/10ML UDC NG SCH ×2 (09:21→17:00)
[2016-08-27 10:36] LABS: NUCLEATED RED BLOOD CELLS 1 /100 WBC
[2016-08-27 10:38] LABS: ANISOCYTOSIS 1+; PLATELET ESTIMATE SLIGHTLY DECREASED
[2016-08-27] MEDS ORDERED: MAGNESIUM 2 G PREMIX 50 ML IV NR (16:00)
[2016-08-27] MEDS: PANTOPRAZOLE SODIUM 40 MG/VIAL IV SCH (21:01)
[2016-08-27] MEDS: POLYETHYLENE GLYCOL 3350 (17GM) 1 DOSE PACK PO SCH (21:02)
[2016-08-28] VITALS (15 sets, daily range): BP systolic 90–130; BP diastolic 53–75
[2016-08-28 06:33] LABS: ANION GAP 9; CALCIUM 8.6 mg/dL (8.5-10.1); CARBON DIOXIDE 30 mEq/L (21-32); CHLORIDE 100 mEq/L (98-107); INDEX HEMOLYSI 1 (1-3); INDEX ICTERIC 1 (1-4); INDEX LIPEMIC 1 (1-3); UREA NITROGEN BLOOD 19 mg/dL (7-21); eGFR > 60 mL/min (>60)
[2016-08-28 06:40] LABS: HEMOGLOBIN 12.3 g/dL (12.0-16.0); MEAN CORPUSCULAR HEMOGLOBIN 35.5 pg (28.0-32.0); MEAN CORPUSCULAR HGB CONC 34.1 g/dL (31.0-37.0); MEAN CORPUSCULAR VOLUME 104.1 fL (81.0-99.0); PLATELET 130 x1000/uL (130-400); RED BLOOD CELL COUNT 3.45 mill/uL (4.2-5.4); RED CELL DISTRIBUTION WIDTH 16.5 % (11.6-14.6); WHITE BLOOD COUNT 10.9 x1000/uL (4.5-11.0)
[2016-08-28] MEDS: BLOOD SUGAR DIAGNOSTIC STRIP TEST SCH ×4 (07:30→21:00)
[2016-08-28] MEDS: INSULIN LISPRO 100 UNITS/ML SUBCUT SCH ×4 (08:00→21:00)
[2016-08-28] MEDS: LACTULOSE 20G/30ML UDC PO SCH ×2 (09:47→18:10)
[2016-08-28] MEDS: PROPRANOLOL HCL 10MG TABLET PO SCH ×2 (09:47→21:00)
[2016-08-28] MEDS: PANTOPRAZOLE SODIUM 40 MG/VIAL IV SCH ×2 (09:47→21:00)
[2016-08-28] MEDS: DOCUSATE SODIUM SUGAR FREE 100MG/10ML UDC NG SCH ×2 (09:47→17:00)
[2016-08-28] MEDS: FUROSEMIDE 40MG/4ML VIAL IV SCH ×2 (09:47→17:15)
[2016-08-28] MEDS: RIFAXIMIN 550 MG TABLET PO SCH ×2 (09:47→21:00)
[2016-08-28] MEDS: SPIRONOLACTONE 25MG TABLET PO SCH ×2 (09:48→17:15)
[2016-08-28] MEDS: DOCUSATE SODIUM 100MG CAPSULE PO PRN (18:10)
[2016-08-28] MEDS: POLYETHYLENE GLYCOL 3350 (17GM) 1 DOSE PACK PO SCH (21:00)
== END 2016-08-28 21:30 | DRG 871 ==
LOC: ER 14:25 → SUPCPDRO 17:25 → 6WST 18:02 → 5EST 08-27 22:15
PROVIDERS: ADMIT Family Medicine Adult Medicine; ATTEND Family Medicine Adult Medicine
DX: A41.9 Sepsis, unspecified organism (principal); E43 Unspecified severe protein-calorie malnutrition; G92 Toxic encephalopathy; J96.00 Acute respiratory failure, unspecified whether with hypoxia or hypercapnia; E87.1 Hypo-osmolality and hyponatremia; G82.20 Paraplegia, unspecified; J98.11 Atelectasis; N39.0 Urinary tract infection, site not specified; I82.401 Acute embolism and thrombosis of unspecified deep veins of right lower extremity; L97.329 Non-pressure chronic ulcer of left ankle with unspecified severity; L97.319 Non-pressure chronic ulcer of right ankle with unspecified severity; K76.6 Portal hypertension; E11.42 Type 2 diabetes mellitus with diabetic polyneuropathy; E78.5 Hyperlipidemia, unspecified; E87.5 Hyperkalemia; J44.9 Chronic obstructive pulmonary disease, unspecified; L89.159 Pressure ulcer of sacral region, unspecified stage; Z90.49 Acquired absence of other specified parts of digestive tract; B96.20 Unspecified Escherichia coli [E. coli] as the cause of diseases classified elsewhere; E66.01 Morbid (severe) obesity due to excess calories; E83.42 Hypomagnesemia; I11.0 Hypertensive heart disease with heart failure; R74.0 Nonspecific elevation of levels of transaminase and lactic acid dehydrogenase [LDH]; M47.9 Spondylosis, unspecified; E11.621 Type 2 diabetes mellitus with foot ulcer; L97.509 Non-pressure chronic ulcer of other part of unspecified foot with unspecified severity; R13.10 Dysphagia, unspecified; I45.10 Unspecified right bundle-branch block; I50.9 Heart failure, unspecified; K72.90 Hepatic failure, unspecified without coma; K74.60 Unspecified cirrhosis of liver; M48.02 Spinal stenosis, cervical region; M48.06 Spinal stenosis, lumbar region; M51.26 Other intervertebral disc displacement, lumbar region; Z68.37 Body mass index [BMI] 37.0-37.9, adult; Z79.84 Long term (current) use of oral hypoglycemic drugs; Z79.899 Other long term (current) drug therapy; Z90.89 Acquired absence of other organs
CPT/HCPCS: 36415; 36600; 70551; 71010; 72141; 72148; 76700; 78582; 80048; 80076; 80305; 81001; 82140; 82375; 82550; 82607; 82746; 82805; 82962; 83036; 83520; 83735; 83880; 84100; 84439; 84443; 84481; 84484; 85014; 85018; 85025; 85027; 85610; 86376; 86705; 86709; 86803; 87077; 87086; 87186; 87340; 92523; 92610; 93005; 93306; 93923; 93970; 94640; 94664; 97110; 97162; 97166; 97530; 99285; A6261; A9558; C9113; G0482; J1650; J1815; J1940; J1956; J3475; J7030; J7040; J7620; J7626; A4315

== ENCOUNTER 2016-12-05 10:31 | Inpatient (IN) | payer MEDICARE, MEDICAID ==
[~2016-12-05] VITALS: Ht 162.6 cm; Wt 100.2 kg
[~2016-12-05 10:31] MED LIST changes: -ALBU18HF2 INH; +CHOL20004 PO; +DOCU-138 PO; +FURO-152 PO; +GABA-529 PO; +LACT10SO6 PO; +LEVO75TA7 PO; +LOV40 SQ; -METF500T3 PO; +ONDA4SOL2 PO; +PANT40TA4 PO; +RIFA550T PO; +SPIR25TA4 PO; +TRAM50TA3 PO
[2016-12-05 12:19] LABS: BASOPHILS % 0.3 % (0.0-2.0); HEMOGLOBIN. 11.7 g/dL (12.0-16.0); LYMPHOCYTES % 10.3 % (20.0-50.0); MEAN CORPUSCULAR HEMOGLOBIN 33.1 pg (28.0-32.0); MEAN CORPUSCULAR VOLUME 101.8 fL (81.0-99.0); MEAN PLATELET VOLUME 8.2 fl (7.4-10.4); MONOCYTES % 6.4 % (2.0-8.0); PLATELET 158 x1000/uL (130-400); RED BLOOD CELL COUNT 3.54 mill/uL (4.2-5.4); RED CELL DISTRIBUTION WIDTH 17.5 % (11.6-14.6)
[2016-12-05 12:28] LABS: INR 2.1; PROTHROMBIN TIME 22.3 sec (9.4-11.6)
[2016-12-05 12:34] LABS: CARBON DIOXIDE 28 mEq/L (21-32); CHLORIDE 110 mEq/L (98-107); ETHANOL BLOOD < 10 mg/dL
[2016-12-05 12:39] LABS: AMMONIA 26 uMol/L (<32); TROPONIN I 0.04 ng/mL (0.00-0.04)
[2016-12-05 13:52] LABS: GLUCOSE URINE NEGATIVE (NEGATIVE); KETONES URINE TRACE (NEGATIVE); LEUKOCYTE ESTERASE URINE 3+ (NEGATIVE); NITRITE URINE NEGATIVE (NEGATIVE); OCCULT BLOOD URINE 3+ (NEGATIVE); PROTEIN URINE NEGATIVE (NEGATIVE); SPECIFIC GRAVITY URINE 1.025 (1.005-1.030); UROBILINOGEN URINE 0.2 E.U./dL (0.2-1.0)
[2016-12-05 13:57] LABS: CLARITY URINE CLOUDY (CLEAR); COLOR URINE DARK YELLOW (YELLOW)
[2016-12-05 14:24] LABS: *AMPHETAMINES SCREEN URINE NEGATIVE (NEGATIVE); *BARBITURATES SCREEN URINE NEGATIVE (NEGATIVE); *BENZODIAZEPINES SCREEN URINE NEGATIVE (NEGATIVE); *COCAINE SCREEN URINE NEGATIVE (NEGATIVE); CANNABINOID URINE SCREEN NEGATIVE (NEGATIVE); METHADONE URINE SCREEN NEGATIVE (NEGATIVE); OPIATES URINE SCREEN PRESUMTIVE POSITIVE (NEGATIVE); PHENCYCLIDINE URINE SCREEN NEGATIVE (NEGATIVE)
[2016-12-05] MEDS ORDERED: CEFTRIAXONE 1 G PREMIX 50 ML IV SCH ×2 (14:30→22:45)
[2016-12-05] MEDS ORDERED: ALBUTEROL (0.5%) 2.5MG/0.5ML NEB HHN SCH (14:30)
[2016-12-05] MEDS ORDERED: LACTULOSE 20G/30ML UDC PO ONE (14:45)
[2016-12-05] MEDS ORDERED: AZITHROMYCIN 500 MG in DEXT 5% WATER 250 ML IV SCH (15:00)
[2016-12-05] MEDS ORDERED: SODIUM CHLORIDE 0.9% 1000ML BAG (SEPSIS BOLUS) IV ONE (16:00)
[2016-12-05] MEDS ORDERED: NALOXONE HCL 0.4 MG/ML 1ML VIAL IV ONE (16:00)
[2016-12-05 22:10] VITALS: BP 100/53
[2016-12-05] MEDS ORDERED: HYDROCODONE/ACETAMINOPHEN 5/325MG TABLET PO PRN (22:45)
[2016-12-05] MEDS ORDERED: MORPHINE SULFATE 4 MG/ML CPJ (NOT FOR IM USE) IV PRN (22:45)
[2016-12-05] MEDS ORDERED: ONDANSETRON HCL 4MG/2ML VIAL IV PRN (22:45)
[2016-12-05] MEDS ORDERED: LORAZEPAM 2MG/ML CPJ IV PRN (22:45)
[2016-12-05] MEDS ORDERED: THIAMINE HCL 100MG TABLET PO SCH (22:45)
[2016-12-05] MEDS ORDERED: SODIUM CHLORIDE 0.9% 1,000 ML IV SCH (23:00)
[2016-12-06] VITALS (57 sets, daily range): BP systolic 69–198; BP diastolic 31–112
[2016-12-06] MEDS ORDERED: LACTULOSE 20G/30ML UDC PO SCH (01:00)
[2016-12-06] MEDS ORDERED: MVI, ADULT NO.1 10 ML, FOLIC ACID 1 MG, THIAMINE HCL 100 MG in SODIUM CHLORIDE 0.9% 1,0... IV NR ×4 (01:00)
[2016-12-06] MEDS: BLOOD SUGAR DIAGNOSTIC STRIP TEST SCH ×4 (05:37→21:04)
[2016-12-06] MEDS: RIFAXIMIN 550 MG TABLET PO SCH (05:45)
[2016-12-06] MEDS: LEVOTHYROXINE SODIUM 75MCG TABLET PO SCH (05:45)
[2016-12-06] MEDS: SPIRONOLACTONE 25MG TABLET PO SCH (05:46)
[2016-12-06 06:23] LABS: BASOPHILS % 0.2 % (0.0-2.0); EOSINOPHILS % 0.1 % (0.0-5.0); HEMATOCRIT. 35.6 % (36.0-48.0); HEMOGLOBIN. 11.6 g/dL (12.0-16.0); LYMPHOCYTES % 14.4 % (20.0-50.0); MEAN CORPUSCULAR HEMOGLOBIN 33.1 pg (28.0-32.0); MEAN CORPUSCULAR VOLUME 101.5 fL (81.0-99.0); MEAN PLATELET VOLUME 8.7 fl (7.4-10.4); MONOCYTES % 6.2 % (2.0-8.0); NEUTROPHILS % 79.1 % (40.0-76.0); PLATELET 138 x1000/uL (130-400); RED BLOOD CELL COUNT 3.51 mill/uL (4.2-5.4); RED CELL DISTRIBUTION WIDTH 17.8 % (11.6-14.6)
[2016-12-06] MEDS ORDERED: PANTOPRAZOLE 40MG DR TABLET PO SCH (07:00)
[2016-12-06] MEDS ORDERED: TRAMADOL 50MG TABLET PO SCH (07:00)
[2016-12-06] MEDS ORDERED: ONDANSETRON 4MG/5ML UDC PO SCH (07:00)
[2016-12-06] MEDS ORDERED: LEVOFLOXACIN 500MG PREMIX 100 ML IV SCH (08:00)
[2016-12-06] MEDS: INSULIN LISPRO 100 UNITS/ML SUBCUT SCH ×4 (08:10→20:30)
[2016-12-06 08:56] LABS: AMMONIA 42 uMol/L (<32)
[2016-12-06] MEDS ORDERED: ENOXAPARIN 40MG/0.4ML SYR SUBCUT SCH (09:00)
[2016-12-06] MEDS ORDERED: DOCUSATE SODIUM 100MG CAPSULE PO SCH (09:00)
[2016-12-06] MEDS: LACTULOSE 20G/30ML UDC PO SCH ×3 (09:00→22:58)
[2016-12-06] MEDS ORDERED: POTASSIUM CHLORIDE 20MEQ TABLET SR PO SCH (09:30)
[2016-12-06] MEDS ORDERED: CLONIDINE 0.1MG TABLET PO PRN (09:30)
[2016-12-06] MEDS ORDERED: FUROSEMIDE 40MG/4ML VIAL IVP SCH (09:30)
[2016-12-06] MEDS ORDERED: LORAZEPAM 2MG/ML CPJ IV PRN (10:45)
[2016-12-06 11:07] LABS: BG BASE EXCESS -1.2 mmol/L (-2.0-2.0); BG CARBOXYHEMOGLOBIN 0.7 % (0.5-1.5); BG FRACTION INSPIRED OXYGEN 40; BG HCO3 ACT 26.8 mmol/L (22.0-26.0); BG METHEMOGLOBIN 0.5 % (0.0-1.5); BG OXYGEN SATURATION 94.9 % (92.0-98.5); BG OXYHEMOGLOBIN 93.8 % (94.0-97.0); BG PCO2 60.2 mmHg (35.0-45.0); BG PH 7.267 (7.350-7.450); BG PO2 85.9 mmHg (75.0-100.0); BG SAMPLE SITE RIGHT BRACHIAL; BG VENT MODE MASK - SIMPLE
[2016-12-06] MEDS ORDERED: DEXT 5%/0.45% NACL 1000ML 1,000 ML IV SCH (11:30)
[2016-12-06] MEDS ORDERED: IPRATROPIUM/ALBUTEROL 0.5-3(2.5)MG/3ML NEB HHN PRN (11:30)
[2016-12-06] MEDS: LEVOFLOXACIN 750MG PREMIX 150 ML IV SCH (11:42)
[2016-12-06] MEDS ORDERED: PHENYTOIN SODIUM 1,000 MG in SODIUM CHLORIDE 0.9% 100 ML IV SCH (12:00)
[2016-12-06 12:09] LABS: CREATINE KINASE 44 IU/L (26-192); CREATINE KINASE MB FRACTION 3.3 ng/mL (0.5-3.6); TROPONIN I < 0.02 ng/mL (0.00-0.04)
[2016-12-06] MEDS: BUDESONIDE 0.5MG/2ML NEB HHN SCH ×2 (12:37→20:22)
[2016-12-06] MEDS: IPRATROPIUM/ALBUTEROL 0.5-3(2.5)MG/3ML NEB HHN SCH ×2 (12:38→20:22)
[2016-12-06] MEDS: HYDRALAZINE 20MG/ML VIAL IV SCH ×3 (12:44→23:40)
[2016-12-06] MEDS: LEVETIRACETAM 500 MG in SODIUM CHLORIDE 0.9% 100 ML IV SCH ×2 (14:10→21:23)
[2016-12-06 14:15] LABS: BG BASE EXCESS -4.7 mmol/L (-2.0-2.0); BG BILEVEL POS AIRWAY PRESSURE 15/5; BG CARBOXYHEMOGLOBIN 0.5 % (0.5-1.5); BG DEOXYHEMOGLOBIN 3.9 % (0.0-5.0); BG FRACTION INSPIRED OXYGEN 60; BG HCO3 ACT 22.5 mmol/L (22.0-26.0); BG METHEMOGLOBIN 0.3 % (0.0-1.5); BG OXYGEN SATURATION 96.1 % (92.0-98.5); BG OXYHEMOGLOBIN 95.3 % (94.0-97.0); BG PCO2 49.6 mmHg (35.0-45.0); BG PH 7.274 (7.350-7.450); BG PO2 90.9 mmHg (75.0-100.0); BG SAMPLE SITE RIGHT BRACHIAL; BG TOTAL HEMOGLOBIN 13.9 g/dL (12.0-18.0); BG VENT MODE MASK - BIPAP; BG VENT RATE 16 set
[2016-12-06] MEDS: ENALAPRIL 2.5MG/2ML VIAL 2ML IV SCH ×3 (16:09→23:40)
[2016-12-06] MEDS ORDERED: MIDAZOLAM HCL 50 MG in DEXTROSE 5% WATER 40 ML IV PRN (16:30)
[2016-12-06] MEDS ORDERED: FENTANYL CITRATE/PF 500 MCG in SODIUM CHLORIDE 0.9% 40 ML IV PRN (16:30)
[2016-12-06 16:33] LABS: BG BASE EXCESS 0.5 mmol/L (-2.0-2.0); BG CARBOXYHEMOGLOBIN 0.7 % (0.5-1.5); BG DEOXYHEMOGLOBIN 1.3 % (0.0-5.0); BG FRACTION INSPIRED OXYGEN 100; BG HCO3 ACT 27.6 mmol/L (22.0-26.0); BG METHEMOGLOBIN 0.5 % (0.0-1.5); BG OXYGEN SATURATION 98.7 % (92.0-98.5); BG OXYHEMOGLOBIN 97.5 % (94.0-97.0); BG PH 7.318 (7.350-7.450); BG PO2 133.3 mmHg (75.0-100.0); BG SAMPLE SITE RIGHT BRACHIAL; BG TIDAL VOLUME(mL) 500 mL; BG TOTAL HEMOGLOBIN 13.5 g/dL (12.0-18.0); BG VENT MODE VENT - A/C; BG VENT RATE 14 set
[2016-12-06 17:02] LABS: BASOPHILS % 0.1 % (0.0-2.0); HEMATOCRIT. 36.2 % (36.0-48.0); HEMOGLOBIN. 11.7 g/dL (12.0-16.0); INR 1.6; LYMPHOCYTES % 8.8 % (20.0-50.0); MEAN CORPUSCULAR VOLUME 101.5 fL (81.0-99.0); MEAN PLATELET VOLUME 8.2 fl (7.4-10.4); MONOCYTES % 4.3 % (2.0-8.0); NEUTROPHILS % 86.8 % (40.0-76.0); PLATELET 157 x1000/uL (130-400); PROTHROMBIN TIME 16.9 sec (9.4-11.6); RED BLOOD CELL COUNT 3.56 mill/uL (4.2-5.4); RED CELL DISTRIBUTION WIDTH 17.7 % (11.6-14.6)
[2016-12-06 17:06] LABS: CHLORIDE 115 mEq/L (98-107)
[2016-12-06 17:08] LABS: CARBON DIOXIDE 29 mEq/L (21-32)
[2016-12-06 17:13] LABS: PHOSPHORUS 3.3 mg/dL (2.5-4.9)
[2016-12-06] MEDS ORDERED: ALBUMIN HUMAN 25GM/100ML (25%) IV NR (17:30)
[2016-12-06] MEDS ORDERED: PHENYTOIN SODIUM 300 MG in SODIUM CHLORIDE 0.9% 50 ML IV SCH (21:00)
[2016-12-06] MEDS ORDERED: POTASSIUM CHLORIDE INJ 40 MEQ in DEXT 5% WATER 250 ML IV NR (21:00)
[2016-12-06] MEDS: DEXTROSE 50% WATER 50ML SYRINGE IV PRN (21:17)
[2016-12-06] MEDS: ENOXAPARIN 100MG/ML SYR SUBCUT SCH (21:25)
[2016-12-06] MEDS ORDERED: ALBUMIN HUMAN 25GM/100ML (25%) IV PRN (21:30)
[2016-12-06] MEDS: NOREPINEPHRINE 16 MG in DEXT 5% WATER 234 ML IV PRN (23:22)
[2016-12-07] VITALS (92 sets, daily range): BP systolic 80–147; BP diastolic 29–128
[2016-12-07] MEDS: BLOOD SUGAR DIAGNOSTIC STRIP TEST SCH ×6 (00:35→20:54)
[2016-12-07] MEDS: DEXTROSE 50% WATER 50ML SYRINGE IV PRN ×2 (00:36→21:01)
[2016-12-07] MEDS: IPRATROPIUM/ALBUTEROL 0.5-3(2.5)MG/3ML NEB HHN SCH ×5 (00:47→20:30)
[2016-12-07] MEDS: INSULIN LISPRO 100 UNITS/ML SUBCUT SCH ×6 (04:59→20:00)
[2016-12-07] MEDS: HYDRALAZINE 20MG/ML VIAL IV SCH (05:04)
[2016-12-07] MEDS: ENALAPRIL 2.5MG/2ML VIAL 2ML IV SCH (05:05)
[2016-12-07 05:36] LABS: BASOPHILS % 0.2 % (0.0-2.0); EOSINOPHILS % 0.1 % (0.0-5.0); HEMATOCRIT. 33.2 % (36.0-48.0); HEMOGLOBIN. 10.6 g/dL (12.0-16.0); LYMPHOCYTES % 12.2 % (20.0-50.0); MEAN CORPUSCULAR HEMOGLOBIN 32.9 pg (28.0-32.0); MEAN CORPUSCULAR VOLUME 102.5 fL (81.0-99.0); MONOCYTES % 6.2 % (2.0-8.0); NEUTROPHILS % 81.3 % (40.0-76.0); PLATELET 118 x1000/uL (130-400); RED BLOOD CELL COUNT 3.24 mill/uL (4.2-5.4); RED CELL DISTRIBUTION WIDTH 18.3 % (11.6-14.6)
[2016-12-07 06:11] LABS: AMMONIA 55 uMol/L (<32)
[2016-12-07 06:13] LABS: PHOSPHORUS 2.3 mg/dL (2.5-4.9)
[2016-12-07] MEDS ORDERED: ETOMIDATE 2MG/ML 10ML VIAL IV ONE (06:41)
[2016-12-07] MEDS ORDERED: SUCCINYLCHOLINE CHLORIDE 200MG/10ML VIAL IV ONE (06:41)
[2016-12-07] MEDS: LEVOTHYROXINE SODIUM 75MCG TABLET PO SCH (06:52)
[2016-12-07] MEDS: LACTULOSE 20G/30ML UDC PO SCH ×2 (06:52→13:26)
[2016-12-07] MEDS: SPIRONOLACTONE 25MG TABLET PO SCH (07:00)
[2016-12-07 07:14] LABS: T4 FREE 1.09 ng/dL (0.76-1.46)
[2016-12-07] MEDS ORDERED: HYDRALAZINE 20MG/ML VIAL IV PRN (08:15)
[2016-12-07] MEDS ORDERED: SODIUM CHLORIDE 0.45% 1,000 ML IV SCH (08:15)
[2016-12-07] MEDS ORDERED: ENALAPRIL 1.25MG/ML VIAL 1ML IV PRN (08:30)
[2016-12-07] MEDS: ENOXAPARIN 100MG/ML SYR SUBCUT SCH ×2 (08:44→20:47)
[2016-12-07] MEDS: PANTOPRAZOLE SODIUM 40 MG/VIAL IV SCH (08:44)
[2016-12-07] MEDS: RIFAXIMIN 550 MG TABLET PO SCH (08:45)
[2016-12-07] MEDS: POTASSIUM CHLORIDE 20MEQ/PACKET NG SCH (08:45)
[2016-12-07] MEDS: LEVETIRACETAM 500 MG in SODIUM CHLORIDE 0.9% 100 ML IV SCH ×2 (08:45→21:41)
[2016-12-07] MEDS: BUDESONIDE 0.5MG/2ML NEB HHN SCH ×2 (08:53→20:29)
[2016-12-07] MEDS ORDERED: FUROSEMIDE 40MG/4ML VIAL IVP SCH (09:00)
[2016-12-07] MEDS ORDERED: POTASSIUM PHOS,M-BASIC-D-BASIC 15 MMOL in DEXT 5% WATER 245 ML IV SCH (09:00)
[2016-12-07] MEDS: FUROSEMIDE 100MG/10ML VIAL IV SCH ×3 (09:27→17:42)
[2016-12-07 11:00] LABS: BG BASE EXCESS -0.8 mmol/L (-2.0-2.0); BG DEOXYHEMOGLOBIN 2.2 % (0.0-5.0); BG FRACTION INSPIRED OXYGEN 100; BG HCO3 ACT 24.9 mmol/L (22.0-26.0); BG METHEMOGLOBIN 0.4 % (0.0-1.5); BG OXYGEN SATURATION 97.8 % (92.0-98.5); BG OXYHEMOGLOBIN 97.4 % (94.0-97.0); BG PCO2 44.9 mmHg (35.0-45.0); BG PH 7.361 (7.350-7.450); BG PO2 105.2 mmHg (75.0-100.0); BG SAMPLE SITE RIGHT RADIAL; BG TIDAL VOLUME(mL) 500 mL; BG TOTAL HEMOGLOBIN 12.1 g/dL (12.0-18.0); BG VENT MODE VENT - A/C; BG VENT RATE 14 set
[2016-12-07] MEDS ORDERED: CEFEPIME 2,000 MG in DEXT 5% WATER 100 ML IV SCH ×4 (11:00)
[2016-12-07] MEDS ORDERED: PHENYTOIN SODIUM 700 MG in SODIUM CHLORIDE 0.9% 100 ML IV SCH (11:00)
[2016-12-07] MEDS ORDERED: HEPARIN 100 UNITS/1 ML VIAL IVF PRN (11:15)
[2016-12-07 11:47] LABS: HDL CHOLESTEROL 14 mg/dL (40-59); LDL CHOLESTEROL 21 mg/dL (5-100); T4 FREE 1.11 ng/dL (0.76-1.46)
[2016-12-07] MEDS ORDERED: VANCOMYCIN 2,000 MG in DEXT 5% WATER 500 ML IV SCH (12:00)
[2016-12-07 12:07] LABS: FOLIC ACID (FOLATE) SERUM 3.9 ng/mL (>5.38)
[2016-12-07 12:36] LABS: AMMONIA 27 uMol/L (<32)
[2016-12-07] MEDS: MEROPENEM 500 MG in SODIUM CHLORIDE 0.9% 50 ML IV SCH (17:42)
[2016-12-07] MEDS ORDERED: MEROPENEM 500 MG in SODIUM CHLORIDE 0.9% 50 ML IV SCH (18:00)
[2016-12-07] MEDS: PHENYTOIN SODIUM 300 MG in SODIUM CHLORIDE 0.9% 50 ML IV SCH (20:48)
[2016-12-07] MEDS: DEXTROSE 5% WATER 1,000 ML IV SCH (22:04)
[2016-12-08] VITALS (85 sets, daily range): BP systolic 50–166; BP diastolic 26–130
[2016-12-08] MEDS: BLOOD SUGAR DIAGNOSTIC STRIP TEST SCH ×7 (00:20→23:26)
[2016-12-08] MEDS: DEXTROSE 50% WATER 50ML SYRINGE IV PRN ×3 (00:22→12:14)
[2016-12-08] MEDS: NOREPINEPHRINE 16 MG in DEXT 5% WATER 234 ML IV PRN ×2 (00:22→15:56)
[2016-12-08] MEDS: IPRATROPIUM/ALBUTEROL 0.5-3(2.5)MG/3ML NEB HHN SCH ×4 (02:07→19:39)
[2016-12-08] MEDS: INSULIN LISPRO 100 UNITS/ML SUBCUT SCH ×7 (04:00→23:26)
[2016-12-08 05:43] LABS: BASOPHILS % 0.1 % (0.0-2.0); EOSINOPHILS % 0.4 % (0.0-5.0); HEMATOCRIT. 35.4 % (36.0-48.0); HEMOGLOBIN. 11.6 g/dL (12.0-16.0); LYMPHOCYTES % 10.8 % (20.0-50.0); MEAN CORPUSCULAR HEMOGLOBIN 32.9 pg (28.0-32.0); MEAN CORPUSCULAR VOLUME 100.5 fL (81.0-99.0); MEAN PLATELET VOLUME 9.2 fl (7.4-10.4); MONOCYTES % 2.7 % (2.0-8.0); PLATELET 133 x1000/uL (130-400); RED BLOOD CELL COUNT 3.52 mill/uL (4.2-5.4)
[2016-12-08] MEDS: MEROPENEM 500 MG in SODIUM CHLORIDE 0.9% 50 ML IV SCH ×2 (06:04→17:12)
[2016-12-08] MEDS: LEVOTHYROXINE SODIUM 75MCG TABLET PO SCH (06:04)
[2016-12-08] MEDS: RIFAXIMIN 550 MG TABLET PO SCH (06:04)
[2016-12-08] MEDS: SPIRONOLACTONE 25MG TABLET PO SCH (07:00)
[2016-12-08 08:00] LABS: BG BASE EXCESS -0.5 mmol/L (-2.0-2.0); BG CARBOXYHEMOGLOBIN 0.8 % (0.5-1.5); BG DEOXYHEMOGLOBIN 8.6 % (0.0-5.0); BG FRACTION INSPIRED OXYGEN 60; BG METHEMOGLOBIN 0.4 % (0.0-1.5); BG OXYGEN SATURATION 91.3 % (92.0-98.5); BG OXYHEMOGLOBIN 90.2 % (94.0-97.0); BG PCO2 38.9 mmHg (35.0-45.0); BG PH 7.408 (7.350-7.450); BG PO2 59.8 mmHg (75.0-100.0); BG SAMPLE SITE RIGHT RADIAL; BG TIDAL VOLUME(mL) 500 mL; BG TOTAL HEMOGLOBIN 14.7 g/dL (12.0-18.0); BG VENT MODE VENT - A/C; BG VENT RATE 14 set
[2016-12-08] MEDS: FUROSEMIDE 100MG/10ML VIAL IV SCH ×3 (09:20→17:12)
[2016-12-08] MEDS: PANTOPRAZOLE SODIUM 40 MG/VIAL IV SCH (09:20)
[2016-12-08] MEDS: LACTULOSE 20G/30ML UDC PO SCH (09:20)
[2016-12-08] MEDS: ENOXAPARIN 100MG/ML SYR SUBCUT SCH ×2 (09:21→21:10)
[2016-12-08] MEDS: POTASSIUM CHLORIDE 20MEQ/PACKET NG SCH (09:21)
[2016-12-08] MEDS: LEVETIRACETAM 500 MG in SODIUM CHLORIDE 0.9% 100 ML IV SCH ×2 (09:21→21:10)
[2016-12-08] MEDS: BUDESONIDE 0.5MG/2ML NEB HHN SCH ×2 (09:34→19:39)
[2016-12-08] MEDS ORDERED: MORPHINE SULFATE 2 MG/ML CPJ (NOT FOR IM USE) IV PRN (10:00)
[2016-12-08] MEDS ORDERED: MAGNESIUM 2 G PREMIX 50 ML IV NR (12:00)
[2016-12-08] MEDS ORDERED: HEPARIN 1000 UNITS/ML 10ML ONE (12:07)
[2016-12-08] MEDS: LEVOFLOXACIN 750MG PREMIX 150 ML IV SCH (12:15)
[2016-12-08] MEDS ORDERED: PHENYLEPHRINE 10 MG in DEXT 5% WATER 249 ML IV PRN ×3 (15:00→15:45)
[2016-12-08] MEDS ORDERED: HEPARIN SODIUM 1,000 UNIT/1ML VIAL IV NR (15:45)
[2016-12-08] MEDS ORDERED: VANCOMYCIN 500 MG PREMIX 100 ML IV NR (20:00)
[2016-12-08] MEDS: PHENYTOIN SODIUM 300 MG in SODIUM CHLORIDE 0.9% 50 ML IV SCH (21:10)
[2016-12-09] VITALS (72 sets, daily range): BP systolic 70–121; BP diastolic 24–92
[2016-12-09] MEDS: IPRATROPIUM/ALBUTEROL 0.5-3(2.5)MG/3ML NEB HHN SCH ×4 (01:52→20:46)
[2016-12-09] MEDS: DEXTROSE 5% WATER 1,000 ML IV SCH (01:58)
[2016-12-09] MEDS ORDERED: VANCOMYCIN 1 G PREMIX 200 ML IV NR (03:00)
[2016-12-09] MEDS: BLOOD SUGAR DIAGNOSTIC STRIP TEST SCH ×6 (04:00→23:37)
[2016-12-09] MEDS: INSULIN LISPRO 100 UNITS/ML SUBCUT SCH ×6 (04:00→23:56)
[2016-12-09] MEDS: NOREPINEPHRINE 16 MG in DEXT 5% WATER 234 ML IV PRN ×3 (04:05→23:42)
[2016-12-09] MEDS: LEVOTHYROXINE SODIUM 75MCG TABLET PO SCH (05:34)
[2016-12-09] MEDS: MEROPENEM 500 MG in SODIUM CHLORIDE 0.9% 50 ML IV SCH (05:34)
[2016-12-09] MEDS: SPIRONOLACTONE 25MG TABLET PO SCH (06:30)
[2016-12-09] MEDS: RIFAXIMIN 550 MG TABLET PO SCH (07:45)
[2016-12-09 07:49] LABS: BG CARBOXYHEMOGLOBIN 0.3 % (0.5-1.5); BG DEOXYHEMOGLOBIN 6.9 % (0.0-5.0); BG FRACTION INSPIRED OXYGEN 60; BG HCO3 ACT 22.8 mmol/L (22.0-26.0); BG METHEMOGLOBIN 0.3 % (0.0-1.5); BG OXYGEN SATURATION 93.1 % (92.0-98.5); BG OXYHEMOGLOBIN 92.5 % (94.0-97.0); BG PCO2 39.1 mmHg (35.0-45.0); BG PH 7.384 (7.350-7.450); BG PO2 67.5 mmHg (75.0-100.0); BG SAMPLE SITE RIGHT BRACHIAL; BG TIDAL VOLUME(mL) 500 mL; BG TOTAL HEMOGLOBIN 12.8 g/dL (12.0-18.0); BG VENT MODE VENT - A/C; BG VENT RATE 14 set
[2016-12-09] MEDS: BUDESONIDE 0.5MG/2ML NEB HHN SCH (08:15)
[2016-12-09 08:33] LABS: BASOPHILS % 0.1 % (0.0-2.0); EOSINOPHILS % 0.2 % (0.0-5.0); HEMATOCRIT. 35.2 % (36.0-48.0); HEMOGLOBIN. 11.2 g/dL (12.0-16.0); LYMPHOCYTES % 8.6 % (20.0-50.0); MEAN CORPUSCULAR HEMOGLOBIN 32.4 pg (28.0-32.0); MEAN CORPUSCULAR VOLUME 101.2 fL (81.0-99.0); MONOCYTES % 1.6 % (2.0-8.0); NEUTROPHILS % 89.5 % (40.0-76.0); PLATELET 65 x1000/uL (130-400); RED BLOOD CELL COUNT 3.47 mill/uL (4.2-5.4); RED CELL DISTRIBUTION WIDTH 17.8 % (11.6-14.6)
[2016-12-09] MEDS: ENOXAPARIN 100MG/ML SYR SUBCUT SCH (09:00)
[2016-12-09] MEDS ORDERED: HEPARIN SODIUM 1,000 UNIT/1ML VIAL IV NR (09:45)
[2016-12-09] MEDS ORDERED: MEROPENEM 1,000 MG in SODIUM CHLORIDE 0.9% 100 ML IV SCH ×2 (10:00→14:00)
[2016-12-09] MEDS: POTASSIUM CHLORIDE 20MEQ/PACKET NG SCH (10:44)
[2016-12-09] MEDS: FUROSEMIDE 100MG/10ML VIAL IV SCH (10:44)
[2016-12-09] MEDS: PANTOPRAZOLE SODIUM 40 MG/VIAL IV SCH (10:44)
[2016-12-09] MEDS: LACTULOSE 20G/30ML UDC PO SCH (10:44)
[2016-12-09] MEDS: LEVETIRACETAM 500 MG in SODIUM CHLORIDE 0.9% 100 ML IV SCH (10:45)
[2016-12-09] MEDS: DEXTROSE 50% WATER 50ML SYRINGE IV PRN ×2 (11:09→16:30)
[2016-12-09] MEDS: AMPICILLIN 1,000 MG in SODIUM CHLORIDE 0.9% 50 ML IV SCH ×3 (12:06→23:42)
[2016-12-09] MEDS: MEROPENEM 1,000 MG in SODIUM CHLORIDE 0.9% 100 ML IV SCH ×2 (14:12→22:08)
[2016-12-09] MEDS: LEVETIRACETAM 500MG in SODIUM CHLORIDE 0.9% 100ML IV SCH (20:19)
[2016-12-09] MEDS: PHENYTOIN SODIUM 300 MG in SODIUM CHLORIDE 0.9% 50 ML IV SCH (20:19)
[2016-12-10] VITALS (75 sets, daily range): BP systolic 83–130; BP diastolic 33–92
[2016-12-10] MEDS: IPRATROPIUM/ALBUTEROL 0.5-3(2.5)MG/3ML NEB HHN SCH ×5 (02:17→19:48)
[2016-12-10] MEDS: INSULIN LISPRO 100 UNITS/ML SUBCUT SCH ×6 (04:00→23:55)
[2016-12-10] MEDS: BLOOD SUGAR DIAGNOSTIC STRIP TEST SCH ×6 (04:07→23:55)
[2016-12-10] MEDS: MEROPENEM 1,000 MG in SODIUM CHLORIDE 0.9% 100 ML IV SCH ×2 (05:33→14:53)
[2016-12-10] MEDS: AMPICILLIN 1,000 MG in SODIUM CHLORIDE 0.9% 50 ML IV SCH ×3 (05:33→17:39)
[2016-12-10] MEDS: LEVOTHYROXINE SODIUM 75MCG TABLET PO SCH (05:33)
[2016-12-10 05:45] LABS: BASOPHILS % 0.1 % (0.0-2.0); EOSINOPHILS % 0.7 % (0.0-5.0); HEMATOCRIT. 37.3 % (36.0-48.0); HEMOGLOBIN. 12.1 g/dL (12.0-16.0); LYMPHOCYTES % 7.6 % (20.0-50.0); MEAN CORPUSCULAR HEMOGLOBIN 32.5 pg (28.0-32.0); MEAN CORPUSCULAR VOLUME 100.4 fL (81.0-99.0); MONOCYTES % 1.7 % (2.0-8.0); NEUTROPHILS % 89.9 % (40.0-76.0); RED BLOOD CELL COUNT 3.71 mill/uL (4.2-5.4); RED CELL DISTRIBUTION WIDTH 17.9 % (11.6-14.6)
[2016-12-10 05:59] LABS: PLATELET 38 x1000/uL (130-400)
[2016-12-10] MEDS: SPIRONOLACTONE 25MG TABLET PO SCH (06:03)
[2016-12-10] MEDS: RIFAXIMIN 550 MG TABLET PO SCH (06:04)
[2016-12-10 07:31] LABS: PHOSPHORUS 3.1 mg/dL (2.5-4.9)
[2016-12-10 08:19] LABS: BG BASE EXCESS -5.6 mmol/L (-2.0-2.0); BG CARBOXYHEMOGLOBIN 0.9 % (0.5-1.5); BG DEOXYHEMOGLOBIN 4.3 % (0.0-5.0); BG FRACTION INSPIRED OXYGEN 70; BG HCO3 ACT 18.9 mmol/L (22.0-26.0); BG METHEMOGLOBIN 0.3 % (0.0-1.5); BG OXYGEN SATURATION 95.6 % (92.0-98.5); BG OXYHEMOGLOBIN 94.5 % (94.0-97.0); BG PCO2 33.9 mmHg (35.0-45.0); BG PH 7.365 (7.350-7.450); BG PO2 80.2 mmHg (75.0-100.0); BG SAMPLE SITE RIGHT RADIAL; BG TIDAL VOLUME(mL) 500 mL; BG TOTAL HEMOGLOBIN 12.7 g/dL (12.0-18.0); BG VENT MODE VENT - A/C; BG VENT RATE 14 set
[2016-12-10] MEDS: LEVETIRACETAM 500MG in SODIUM CHLORIDE 0.9% 100ML IV SCH ×2 (09:00→20:17)
[2016-12-10] MEDS: POTASSIUM CHLORIDE 20MEQ/PACKET NG SCH (09:00)
[2016-12-10] MEDS: PANTOPRAZOLE SODIUM 40 MG/VIAL IV SCH (09:00)
[2016-12-10] MEDS: LACTULOSE 20G/30ML UDC PO SCH (09:02)
[2016-12-10] MEDS ORDERED: LACTULOSE 20G/30ML UDC PO PRN (09:15)
[2016-12-10] MEDS: NOREPINEPHRINE 16 MG in DEXT 5% WATER 234 ML IV PRN ×2 (10:42→19:37)
[2016-12-10] MEDS ORDERED: HEPARIN SODIUM 1,000 UNIT/1ML VIAL IV NR (11:45)
[2016-12-10 14:18] LABS: D-DIMER 4.14 mg/L FEU (<0.50); INR 1.8
[2016-12-10] MEDS: PHYTONADIONE 10MG/ML AMP SUBCUT SCH (16:26)
[2016-12-10] MEDS: PHENYTOIN SODIUM 300 MG in SODIUM CHLORIDE 0.9% 50 ML IV SCH (21:44)
[2016-12-11] VITALS (93 sets, daily range): BP systolic 85–127; BP diastolic 29–87
[2016-12-11] MEDS: AMPICILLIN 1,000 MG in SODIUM CHLORIDE 0.9% 50 ML IV SCH ×3 (00:03→11:39)
[2016-12-11] MEDS: IPRATROPIUM/ALBUTEROL 0.5-3(2.5)MG/3ML NEB HHN SCH ×5 (01:30→20:37)
[2016-12-11] MEDS: INSULIN LISPRO 100 UNITS/ML SUBCUT SCH ×5 (04:00→19:14)
[2016-12-11] MEDS: BLOOD SUGAR DIAGNOSTIC STRIP TEST SCH ×5 (04:03→19:14)
[2016-12-11 04:57] LABS: BASOPHILS % 0.1 % (0.0-2.0); HEMATOCRIT. 36.3 % (36.0-48.0); HEMOGLOBIN. 11.9 g/dL (12.0-16.0); LYMPHOCYTES % 8.2 % (20.0-50.0); MEAN CORPUSCULAR VOLUME 100.4 fL (81.0-99.0); MEAN PLATELET VOLUME 9.7 fl (7.4-10.4); MONOCYTES % 1.4 % (2.0-8.0); NEUTROPHILS % 89.3 % (40.0-76.0); RED BLOOD CELL COUNT 3.62 mill/uL (4.2-5.4); RED CELL DISTRIBUTION WIDTH 17.6 % (11.6-14.6)
[2016-12-11] MEDS: NOREPINEPHRINE 16 MG in DEXT 5% WATER 234 ML IV PRN ×3 (05:00→23:59)
[2016-12-11 05:11] LABS: AMMONIA 25 uMol/L (<32)
[2016-12-11 05:13] LABS: CARBON DIOXIDE 18 mEq/L (21-32); CHLORIDE 110 mEq/L (98-107)
[2016-12-11 05:31] LABS: PLATELET 25 x1000/uL (130-400)
[2016-12-11] MEDS: LEVOTHYROXINE SODIUM 75MCG TABLET PO SCH (06:14)
[2016-12-11] MEDS: RIFAXIMIN 550 MG TABLET PO SCH (06:14)
[2016-12-11] MEDS: SPIRONOLACTONE 25MG TABLET PO SCH (07:00)
[2016-12-11 07:08] LABS: BG BASE EXCESS -8.6 mmol/L (-2.0-2.0); BG CARBOXYHEMOGLOBIN 0.7 % (0.5-1.5); BG DEOXYHEMOGLOBIN 8.4 % (0.0-5.0); BG HCO3 ACT 16.2 mmol/L (22.0-26.0); BG METHEMOGLOBIN 0.4 % (0.0-1.5); BG OXYGEN SATURATION 91.5 % (92.0-98.5); BG OXYHEMOGLOBIN 90.5 % (94.0-97.0); BG PCO2 31.6 mmHg (35.0-45.0); BG PH 7.328 (7.350-7.450); BG PO2 65.9 mmHg (75.0-100.0); BG SAMPLE SITE RIGHT RADIAL; BG TIDAL VOLUME(mL) 500 mL; BG TOTAL HEMOGLOBIN 13.3 g/dL (12.0-18.0); BG VENT MODE VENT - A/C; BG VENT RATE 14 set
[2016-12-11] MEDS: PHYTONADIONE 10MG/ML AMP SUBCUT SCH (08:24)
[2016-12-11] MEDS: PANTOPRAZOLE SODIUM 40 MG/VIAL IV SCH (08:24)
[2016-12-11] MEDS: MEROPENEM 1000MG in NORMAL SALINE 100ML IV SCH ×2 (08:25→20:07)
[2016-12-11] MEDS: POTASSIUM CHLORIDE 20MEQ/PACKET NG SCH (08:25)
[2016-12-11] MEDS: LEVETIRACETAM 500MG in SODIUM CHLORIDE 0.9% 100ML IV SCH ×2 (08:25→20:51)
[2016-12-11] MEDS: PHENYLEPHRINE 40 MG in DEXT 5% WATER 246 ML IV PRN ×2 (08:43→20:49)
[2016-12-11 14:42] LABS: PROTHROMBIN TIME 20.8 sec (9.4-11.6)
[2016-12-11 14:45] LABS: PARTIAL THROMBOPLASTIN TIME 95.9 sec (23.4-31.0)
[2016-12-11] MEDS: DEXTROSE 50% WATER 50ML SYRINGE IV PRN (19:06)
[2016-12-11] MEDS: PHENYTOIN SODIUM 300 MG in SODIUM CHLORIDE 0.9% 50 ML IV SCH (21:40)
[2016-12-12] VITALS (83 sets, daily range): BP systolic 54–109; BP diastolic 17–55
[2016-12-12] MEDS: DEXTROSE 50% WATER 50ML SYRINGE IV PRN (01:19)
[2016-12-12] MEDS ORDERED: DEXT 5%/0.45% NACL 500ML 500 ML IV SCH (01:45)
[2016-12-12] MEDS ORDERED: SODIUM CHLORIDE 0.9% 500 ML IV NR (01:45)
[2016-12-12] MEDS: IPRATROPIUM/ALBUTEROL 0.5-3(2.5)MG/3ML NEB HHN SCH ×3 (02:11→13:19)
[2016-12-12] MEDS: DOPAMINE 800MG PREMIX 250 ML IV PRN ×5 (02:16→14:16)
[2016-12-12] MEDS ORDERED: DEXT 5%/0.45% NACL 500ML 1,000 ML IV SCH (02:30)
[2016-12-12] MEDS: PHENYLEPHRINE 40 MG in DEXT 5% WATER 246 ML IV PRN ×4 (02:58→14:17)
[2016-12-12 03:14] LABS: FIBRINOGEN 175 mg/dL (200-400)
[2016-12-12 03:27] LABS: INR 2.9; PROTHROMBIN TIME 30.5 sec (9.4-11.6)
[2016-12-12] MEDS: INSULIN LISPRO 100 UNITS/ML SUBCUT SCH ×5 (03:49→16:23)
[2016-12-12] MEDS: BLOOD SUGAR DIAGNOSTIC STRIP TEST SCH ×5 (03:49→16:23)
[2016-12-12 04:23] LABS: PARTIAL THROMBOPLASTIN TIME > 200.0 sec (23.4-31.0)
[2016-12-12 04:45] LABS: D-DIMER > 35.20 mg/L FEU (<0.50)
[2016-12-12] MEDS ORDERED: VANCOMYCIN 750 MG PREMIX 150 ML IV NR (05:00)
[2016-12-12 06:07] LABS: HEMATOCRIT. 36.8 % (36.0-48.0); HEMOGLOBIN. 11.5 g/dL (12.0-16.0); MEAN CORPUSCULAR VOLUME 105.7 fL (81.0-99.0); MEAN PLATELET VOLUME 8.6 fl (7.4-10.4); RED BLOOD CELL COUNT 3.48 mill/uL (4.2-5.4); RED CELL DISTRIBUTION WIDTH 18.2 % (11.6-14.6)
[2016-12-12 06:13] LABS: PLATELET 18 x1000/uL (130-400)
[2016-12-12] MEDS: RIFAXIMIN 550 MG TABLET PO SCH (06:15)
[2016-12-12] MEDS: LEVOTHYROXINE SODIUM 75MCG TABLET PO SCH (06:15)
[2016-12-12] MEDS: SPIRONOLACTONE 25MG TABLET PO SCH (06:16)
[2016-12-12 06:26] LABS: AMMONIA 44 uMol/L (<32)
[2016-12-12 06:58] LABS: CHLORIDE 106 mEq/L (98-107)
[2016-12-12 07:06] LABS: NUCLEATED RED BLOOD CELLS 2 /100 WBC
[2016-12-12 07:07] LABS: PLATELET ESTIMATE MARKEDLY DECREASED
[2016-12-12 07:30] LABS: CARBON DIOXIDE 9 mEq/L (21-32)
[2016-12-12 08:10] LABS: BG BASE EXCESS -20.8 mmol/L (-2.0-2.0); BG CARBOXYHEMOGLOBIN 0.2 % (0.5-1.5); BG DEOXYHEMOGLOBIN 4.3 % (0.0-5.0); BG FRACTION INSPIRED OXYGEN 80; BG HCO3 ACT 7.9 mmol/L (22.0-26.0); BG METHEMOGLOBIN 0.4 % (0.0-1.5); BG OXYGEN SATURATION 95.7 % (92.0-98.5); BG OXYHEMOGLOBIN 95.1 % (94.0-97.0); BG PCO2 27.8 mmHg (35.0-45.0); BG PH 7.072 (7.350-7.450); BG PO2 96.9 mmHg (75.0-100.0); BG SAMPLE SITE RIGHT RADIAL; BG TIDAL VOLUME(mL) 500 mL; BG TOTAL HEMOGLOBIN 11.7 g/dL (12.0-18.0); BG VENT MODE VENT - A/C; BG VENT RATE 14 set
[2016-12-12 08:12] LABS: PROTHROMBIN TIME 41.3 sec (9.4-11.6)
[2016-12-12 08:20] LABS: PARTIAL THROMBOPLASTIN TIME > 200.0 sec (23.4-31.0)
[2016-12-12] MEDS: PANTOPRAZOLE SODIUM 40 MG/VIAL IV SCH (08:41)
[2016-12-12] MEDS: PHYTONADIONE 10MG/ML AMP SUBCUT SCH (08:41)
[2016-12-12] MEDS: LEVETIRACETAM 500MG in SODIUM CHLORIDE 0.9% 100ML IV SCH (08:41)
[2016-12-12] MEDS: MEROPENEM 1000MG in NORMAL SALINE 100ML IV SCH (08:41)
[2016-12-12] MEDS: POTASSIUM CHLORIDE 20MEQ/PACKET NG SCH (08:41)
[2016-12-12] MEDS ORDERED: SODIUM BICARBONATE 8.4% 1 MEQ/ML 50ML SYR IV NR (09:30)
[2016-12-12] MEDS: NOREPINEPHRINE 16 MG in DEXT 5% WATER 234 ML IV PRN (09:30)
[2016-12-12] MEDS ORDERED: SODIUM BICARBONATE 150 MEQ in DEXTROSE 5% WATER 1,000 ML IV SCH (11:00)
[2016-12-12] MEDS ORDERED: CALCIUM CHLORIDE 1GM/10ML SYR IV ONE (18:00)
[2016-12-12] MEDS ORDERED: SODIUM BICARBONATE 7.5% 0.9 MEQ/ML 50ML SYR IV ONE (18:00)
[2016-12-12] MEDS ORDERED: DEXTROSE 50% WATER 50ML SYRINGE IV ONE (18:00)
[2016-12-12] MEDS ORDERED: EPINEPHRINE 0.1MG/ML (1:10,000) 10ML SYR ONE (18:00)
== END 2016-12-12 18:26 | disposition expired | DRG 884 ==
LOC: ER 10:58 → 7WST 15:49 → EDBEDREQSVC 15:51 → EDBEDREQTM 15:51 → EDBEDREQ 15:51 → ENRESERV 20:11 → MICUNO 12-06 10:10 → MICUSO 12-08 15:09
PROVIDERS: ADMIT Internal Medicine Nephrology; ATTEND Internal Medicine Nephrology
PROC: 5A1955Z Respiratory Ventilation, Greater than 96 Consecutive Hours (ICD-10-PCS; principal; 2016-12-06)
PROC: 0BH17EZ Insertion of Endotracheal Airway into Trachea, Via Natural or Artificial Opening (ICD-10-PCS; 2016-12-06)
PROC: 02H633Z Insertion of Infusion Device into Right Atrium, Percutaneous Approach (ICD-10-PCS; 2016-12-07)
PROC: B2141ZZ Fluoroscopy of Right Heart using Low Osmolar Contrast (ICD-10-PCS; 2016-12-07)
DX: F03.90 Unspecified dementia, unspecified severity, without behavioral disturbance, psychotic disturbance, mood disturbance, and anxiety (principal); J96.01 Acute respiratory failure with hypoxia; N17.0 Acute kidney failure with tubular necrosis; I46.9 Cardiac arrest, cause unspecified; R65.21 Severe sepsis with septic shock; E43 Unspecified severe protein-calorie malnutrition; A41.9 Sepsis, unspecified organism; G92 Toxic encephalopathy; J18.9 Pneumonia, unspecified organism; I82.401 Acute embolism and thrombosis of unspecified deep veins of right lower extremity; N39.0 Urinary tract infection, site not specified; L89.159 Pressure ulcer of sacral region, unspecified stage; I10 Essential (primary) hypertension; D64.9 Anemia, unspecified; E03.9 Hypothyroidism, unspecified; E11.9 Type 2 diabetes mellitus without complications; E87.70 Fluid overload, unspecified; K72.90 Hepatic failure, unspecified without coma; K74.60 Unspecified cirrhosis of liver; M48.02 Spinal stenosis, cervical region; M48.06 Spinal stenosis, lumbar region; R56.9 Unspecified convulsions; Z51.5 Encounter for palliative care; Z66 Do not resuscitate; Z79.84 Long term (current) use of oral hypoglycemic drugs; Z79.899 Other long term (current) drug therapy; Z99.2 Dependence on renal dialysis; Z68.37 Body mass index [BMI] 37.0-37.9, adult
CPT/HCPCS: 36415; 36556; 36569; 36600; 70450; 70551; 71010; 76770; 76857; 76937; 78580; 80048; 80053; 80061; 80076; 80185; 80202; 80305; 81001; 82140; 82375; 82550; 82553; 82607; 82746; 82805; 82962; 83036; 83605; 83735; 83880; 84100; 84145; 84439; 84443; 84481; 84484; 85025; 85379; 85384; 85610; 85730; 86022; 87040; 87070; 87077; 87086; 87186; 87493; 93005; 93880; 93970; 94002; 94003; 94640; 94660; 94664; 95822; 96365; 96366; 96367; 96375; 99291; A6261; C1725; C1752; C9113; G0482; J0171; J0290; J0330; J0360; J0456; J0692; J1165; J1265; J1644; J1650; J1815; J1940; J1953; J1956; J2060; J2185; J2250; J2310; J2370; J3010; J3370; J3411; J3430; J3475; J3480; J3490; J7030; J7040; J7050; J7060; J7070; J7611; J7620; J7626; P9047; Q0162; A4315